=== PATIENT | female | born 1945 | race Caucasian/White ===

== ENCOUNTER → 2023-07-22 10:02 | Outpatient (REF) | payer MEDICARE, SELFPAY ==
[2023-07-22 12:03] LABS: % Basophils 0.3 % (0-2); % Eosinophils 1.2 % (0-6); % Immature Granulocytes 0.8 % (0-0.5); % Monocytes 6.1 % (1.7-9.3); % Neutrophils 60.6 % (42.2-75.2); Absolute Eosinophils 0.1 10^3/uL (0-0.7); Absolute Immature Granulocytes 0.1 10^3/uL (0-0.05); Absolute Lymphocytes 2.8 10^3/uL (1.2-3.4); Absolute Monocytes 0.6 10^3/uL (0.1-0.6); Absolute Neutrophils 5.6 10^3/uL (1.4-6.5); Hematocrit 43.4 % (37.0-47.0); Hemoglobin 14.2 g/dL (12.0-16.0); Mean Corp Hgb Conc. 32.7 g/dL (33.0-37.0); Mean Corpuscular Hgb 28.2 pg (27.0-31.0); Mean Corpuscular Volume 86.3 fL (81.0-99.0); Mean Platelet Volume 10.7 fL (7.4-10.4); Nucleated Red Blood Cells % 0 %; Platelet Count 302 10^3/uL (130-400); Red Blood Cell Count 5.03 10^6/uL (4.20-5.40); Red Cell Dist. Width 13.4 % (11.5-14.5); White Blood Cell Count 9.2 10^3/uL (4.8-10.8)
[2023-07-22 12:17] LABS: Blood Urea Nitrogen 30 mg/dl (7-17); Carbon Dioxide 27 mmol/L (22-30); Chloride 103 mmol/L (98-107); Glucose 117 mg/dl (70-99); Potassium 4.5 mmol/L (3.5-5.1); Sodium 140 mmol/L (135-145); eGFR > 60.00
== END ==
LOC: HWLAB 10:02
PROVIDERS: ATTENDING PHYSICIAN Orthopaedic Surgery; FAMILY PHYSICIAN Internal Medicine
DX: Z01.818 Encounter for other preprocedural examination (principal)
CPT/HCPCS: 36415; 80048; 85025

== ENCOUNTER 2023-08-17 13:15 | Inpatient (IN) | payer MEDICARE, SELFPAY ==
[2023-08-17] VITALS (14 sets, daily range): BP systolic 124–176; BP diastolic 58–75; BMI 30.1
[2023-08-17 06:46] LABS: % Basophils 0.3 % (0-2); % Eosinophils 2.5 % (0-6); % Immature Granulocytes 0.7 % (0-0.5); % Lymphocytes 41.9 % (20.5-51.1); % Monocytes 7.1 % (1.7-9.3); % Neutrophils 47.5 % (42.2-75.2); Absolute Eosinophils 0.3 10^3/uL (0-0.7); Absolute Immature Granulocytes 0.1 10^3/uL (0-0.05); Absolute Lymphocytes 4.5 10^3/uL (1.2-3.4); Absolute Monocytes 0.8 10^3/uL (0.1-0.6); Absolute Neutrophils 5.1 10^3/uL (1.4-6.5); Hematocrit 35.7 % (37.0-47.0); Hemoglobin 11.9 g/dL (12.0-16.0); Mean Corp Hgb Conc. 33.3 g/dL (33.0-37.0); Mean Corpuscular Hgb 28.1 pg (27.0-31.0); Mean Corpuscular Volume 84.2 fL (81.0-99.0); Mean Platelet Volume 9.8 fL (7.4-10.4); Nucleated Red Blood Cells % 0 %; Platelet Count 312 10^3/uL (130-400); Red Blood Cell Count 4.24 10^6/uL (4.20-5.40); Red Cell Dist. Width 13.9 % (11.5-14.5); White Blood Cell Count 10.7 10^3/uL (4.8-10.8)
[2023-08-17 06:56] LABS: ALT (SGPT) 26 U/L (0-35); AST (SGOT) 24 U/L (14-36); Albumin 3.3 g/dl (3.5-5.0); Alkaline Phosphatase 80 U/L (38-126); Blood Urea Nitrogen 21 mg/dl (7-17); Calcium 8.8 mg/dl (8.4-10.2); Carbon Dioxide 29 mmol/L (22-30); Chloride 104 mmol/L (98-107); Estimated Creatinine Clearance 79 ml/min; Glucose 114 mg/dl (70-99); Sodium 135 mmol/L (135-145); Total Bilirubin 0.7 mg/dl (0.2-1.3); Total Protein 5.7 g/dl (6.3-8.2); eGFR > 60.00
[2023-08-17 07:08] LABS: Troponin I < 0.012 ng/ml
--- NOTE | 2023-08-17 09:03 | ED.GENMED ---
History of Present Illness
General
Chief Complaint: Chest Pain
Source: patient
Exam Limitations: none
Time Seen by Provider: 08/17/23 06:35
Nursing documentation reviewed up to this point in time: agreed with
Travel History
Have you had any contact with someone who has COVID-19?: No
Do you have any symptoms of coronavirus? Fever > 100 degrees, chills, cough, shortness of breath, sore throat, loss of taste or smell, muscle aches, or headache?: No
History of Present Illness
History of Present Illness:
Patient status post left hip replacement 1 week ago, currently on Eliquis, presents to ED secondary to increased bilateral swelling over the past couple days, along with chest pain upon waking up this morning. Chest pain described as 'squeezing',
across her chest, without any alleviating or exacerbating this. Denies shortness of breath. Denies nausea or vomiting. Denies diaphoresis. Denies dizziness. Chest pain lasted approximately half hour, and started to improve gradually. Patient
states that by the time paramedics arrived at home, her chest pain had resolved. However, patient was given aspirin as well as 1 dose of nitroglycerin en route to the hospital. At the time of evaluation ED, patient is without chest pain. Of note,
patient states that her chest pain is similar to 2013, when she experienced pulmonary embolism, after knee surgery.
Past History
Past History
ED Past Medical History: Hypercholesterolemia and Other (Osteoporosis)
ED Past Surgical History: Gynecological, Orthopedic (Knee surgery) and Other (D.)
Social History
Tobacco: Non-smoker
Drug: None
Personal:
Living: alone
Review of Systems
Review of Systems
Allergies reviewed?: Yes
All Other Systems: ROS reviewed and negative except as documented in HPI and ROS
Constitutional: Reports no symptoms
EENT: Reports no symptoms
Respiratory: Reports no symptoms
Cardiac: Reports chest pain
ABD/GI: Reports no symptoms
Musculoskeletal: Reports edema
Skin: Reports no symptoms
Neurological: Reports no symptoms
Phy Exam
Physical Exam
Physical Exam:
Physical Exam
General: no apparent distress, not acutely ill. afebrile
Head: nc/at. eomi
Neck: supple. no meningeal signs.
Heart: s1/s2 regular rate and rhythm, no murmur. equal radial pulses.
Lungs: no acute respiratory distress. clear bilaterally. chest wall nontender to palpation.
Abdomen: normal bowel sounds. not tender.
Neuro: alert and oriented. no focal neurological deficits
Skin: no rash
Psychiatric: well kept. interactive and cooperative
Extremities: LE b/l edema, nonpitting. no calf tenderness.
Scores
Heart Score for Chest Pain Patients
STEMI patient?: Not applicable
Course
Orders/Labs/Results
Orders:
Orders
08/17/23 06:25
Electrocardiogram (*1) Urgent
Reason for Study: Chest Pain
Cardiac Monitoring- Treatment ONCE
EKG- Treatment ONCE
IV Insert/Care/Rem.- Treatment PRN
O2 Therapy [RESP] Urgent
Titrate/Wean O2 to maintain O2 sat greater than (%): 90
Special Instructions: Maintain sats >/=90%
Pulse Ox/spot Check [RESP] Urgent
Quantity: 1
Special Instructions: ON ROOM AIR
08/17/23 06:33
Complete Blood Count/With Diff Urgent
Comprehensive Metabolic Panel Urgent
Troponin I Urgent
08/17/23 06:46
US Legs, Bilateral [US Periph Venous LOWER Ext Solitario] Urgent
Comment:
Reason For Exam: leg swelling
08/17/23 08:06
Electrocardiogram (*1) Urgent
Reason for Study: Chest Pain
EKG- Treatment ONCE
08/17/23 08:16
CT Chest Pe Study Urgent
Comment:
Reason For Exam: chest pain w hx PE
08/17/23 11:50
Heparin 6,300 units IV NOW STA
08/17/23 11:59
PTT Urgent
Comment: Obtain baseline before beginning heparin infusion if not already collected
08/17/23 12:00
Heparin 81034 Units/250 ml 25,000 units in 250 ml IV PER PROTOCOL
Weight to be used for heparin protocol in kilograms (kg):: 79.3
Protocol:: DVT/PE
PTT Goal Range to be used:: PTT 73 to 111 seconds
Order type:: Initial
INITIAL Infusion Dose (UNITS/KG/hr) & then follow protocol:: 18 units/kg/hr
Infusion Dose in UNITS/hr & then follow protocol (UNITS/hr):: 1,400
INFUSION RATE in mL/hr & then follow protocol (mL/hr):: 14
For DVT/PE algorithm, re-bolus for low PTT?: Yes
PTT less than or equal to 64 seconds:: Re-bolus 80 units/kg (max 10,000units). Increase by 300 units/hr
(+ 3mL/hr)
PTT 64.1 to 72.9 seconds:: Re-bolus 40 units/kg (max 5,000 units). Increase by 200 units/hr
(+ 2mL/hr)
PTT 73 to 111 seconds:: Target Range. No change in rate.
PTT 111.1 to 130.9 seconds:: Decrease rate by 200 units/hr (- 2 mL/hr)
PTT 131 to 199.9 seconds:: HOLD for 1 hr. Then decrease by 200 units/hr (- 2mL/hr)
PTT greater than or equal to 200 seconds:: HOLD for 2 hrs & Notify Provider. Then decrease by 300 units/hr
(- 3mL/hr)
Lab follow-up:: Each change, PTT q6h until 2 consecutive are therapeutic. Then
PTT daily.
08/17/23 12:31
Heparin 6,344 units IV PRN PRN
08/17/23 12:32
Heparin 3,172 units IV PRN PRN
08/17/23 12:33
Heparin 6,300 units IV PRN PRN
08/17/23 12:34
Heparin 3,200 units IV PRN PRN
08/17/23 12:54
Code Status As Directed
Resuscitation Status: Full Code
Pt Eval And Treat Routine
Activity Level: With Assistance
08/17/23 12:55
Admit Patient As Directed
Co-Sign Provider:
Level of Care: Inpatient admission
Assign to:: Medical/Surgical
Physician / Group: Hospitalist
Diagnosis: Acute pulmonary embolism
Reason for Hospitalization: pulmonary embolism requiring parenteral anticoagulation
Expected length of stay greater than two midnights?: Yes
ELOS- Estimated Length of Stay in days: 2
I certify the patient meets the requirements for IP care: Yes
Heparin Protocol- PTT Orders As Directed
PTT per Heparin protocol: -Obtain CBC and baseline PTT - if not already collected.
-Obtain PTT 6 hours from start of infusion. Then, every 6 hours until 2 consecutive
PTT's are therapeutic. Then, PTT Daily.
-With each rate change, obtain PTT every 6 hours until 2 consecutive PTT's are
therapeutic. Then, PTT Daily.
Activity As Directed
Activity Level: With Assistance
Bladder Scan As Directed
Follow Bladder Retention/Intermittent Cath Algorithm?: Yes
Frequency: Per Retention Algorithm
Comment: as per intermittent urinary catheter algorithm
Bladder Scan As Directed
Follow Bladder Retention/Intermittent Cath Algorithm?: Yes
PRN if no void in __ hours: 6
Frequency: Per Retention Algorithm
If Bladder Scan Result >: 400
then:: Straight cath
Intake/ Output As Directed
Frequency: Per unit guidelines
Notify MD As Directed
Notify physician if: PTT is greater than or equal to 200.
Straight Cath As Directed
Frequency: Per Retention Algorithm
Additional Instructions: as per intermittent urinary catheter algorithm
Straight Cath As Directed
Frequency: Per Retention Algorithm
Additional Instructions: straight cath as needed per acute urinary retention algorithm for 24 hrs
Additional Instructions: for bladder scan greater than 400 mL
Vital Signs As Directed
Frequency: Per unit guidelines
08/17/23 12:56
O2 Therapy [RESP] Routine
Titrate/Wean O2 to maintain O2 sat greater than (%): 90
08/17/23 13:00
Acetaminophen [Tylenol] 650 mg PO Q4HPRN PRN
Oxycodone [Roxicodone] 5 mg PO Q6HPRN PRN
08/17/23 13:03
Admit/Transfer Patient As Directed
Co-Sign Provider:
Level of Care: Inpatient admission
Assign to:: Telemetry
Physician / Group: hospitalist
Diagnosis: acute pulmonary embolism
Reason for Telemetry: Chest Pain syndromes
Date to Stop Telemetry: 08/19/23
Time to Stop Telemetry: 11:00
Reason for Hospitalization: pulmonary embolism
Expected length of stay greater than two midnights?: Yes
ELOS- Estimated Length of Stay in days: 2
I certify the patient meets the requirements for IP care: Yes
08/17/23 Dinner
Regular
At Your Request: Limited Participation
08/17/23 16:14
HEMATOLOGY CONSULT Routine
Consulting Provider: Vaishali Mendez
Was physician already notified: Yes
Reason for consult: acute PE on apixaban
08/17/23 18:00
Atorvastatin [Lipitor] 20 mg PO QPM
Sertraline HCl [Zoloft] 50 mg PO QPM
08/18/23 06:33
Type+Screen IN AM
Complete Blood Count/No Diff IN AM
Prothrombin Time IN AM
08/18/23 08:00
Cholecalciferol (Vitamin D3) [VITAMIN D3 (cholecalciferol)] 25 mcg PO DAILY
08/19/23 06:00
Complete Blood Count/No Diff Q2D
Comment: notify provider: Platelet count < 130,000 or decrease by 50% from baseline
08/21/23 06:00
Complete Blood Count/No Diff Q2D
Comment: notify provider: Platelet count < 130,000 or decrease by 50% from baseline
08/23/23 06:00
Complete Blood Count/No Diff Q2D
Comment: notify provider: Platelet count < 130,000 or decrease by 50% from baseline
08/25/23 06:00
Complete Blood Count/No Diff Q2D
Comment: notify provider: Platelet count < 130,000 or decrease by 50% from baseline
08/27/23 06:00
Complete Blood Count/No Diff Q2D
Comment: notify provider: Platelet count < 130,000 or decrease by 50% from baseline
08/29/23 06:00
Complete Blood Count/No Diff Q2D
Comment: notify provider: Platelet count < 130,000 or decrease by 50% from baseline
08/31/23 06:00
Complete Blood Count/No Diff Q2D
Comment: notify provider: Platelet count < 130,000 or decrease by 50% from baseline
09/02/23 06:00
Complete Blood Count/No Diff Q2D
Comment: notify provider: Platelet count < 130,000 or decrease by 50% from baseline
Abnormal Lab Results
08/17/23
06:33
Hgb 11.9 L g/dL
(12.0-16.0)
Hct 35.7 L %
(37.0-47.0)
Abs Immat Gran (auto) 0.1 H 10^3/uL
(0-0.05)
Absolute Lymphs (auto) 4.5 H 10^3/uL
(1.2-3.4)
Absolute Monos (auto) 0.8 H 10^3/uL
(0.1-0.6)
Immature Gran % 0.7 H %
(0-0.5)
BUN 21 H mg/dl
(7-17)
Glucose 114 H mg/dl
(70-99)
Total Protein 5.7 L g/dl
(6.3-8.2)
Albumin 3.3 L g/dl
(3.5-5.0)
08/17/23 06:33
08/17/23 06:33
Vital Signs
Initial and Last Documented VS:
Initial Vital Signs
Temp Pulse Resp BP Pulse Ox
97.8 F 61 22 153/58 97
08/17/23 06:26 08/17/23 06:26 08/17/23 06:26 08/17/23 06:26 08/17/23 06:26
Last Documented Vital Signs
Temp Pulse Resp BP Pulse Ox
97.7 F 68 18 113/64 100
08/18/23 07:15 08/18/23 07:15 08/18/23 07:15 08/18/23 07:15 08/18/23 07:15
MDM/Problems Addressed
MDM/Problems Addressed:
CTA chest report reviewed and discussed with Dr. Valdez, pulmonary. Recommend starting patient on heparin protocol, along with possible hematology consult as inpatient, for further evaluation/treatment. Patient otherwise remains hemodynamically
stable during observation ED, not requiring any supplemental oxygen. No evidence of right heart strain noted on CT scan.
*EKG
Interpreted by ED Provider?: Yes
Heart Rate: 58
Rate: bradycardiac
Rhythm: sinus
[place]: normal axis
Interval: normal interval
QRS Pattern: normal QRS
Ischemia: T-wave inversion
*Critical Care Note
Total Time (30-74mins, 75-104mins- exclusive of procedures): Not Applicable
ED Attending Note
-
Portions of this chart may have been created with voice recognition software.� Occasional wrong word or��sound alike� substitutions may have occurred due to the inherent limitations of voice recognition software.
Discharge Plan
Departure
Patient Disposition: Admit
Date of Disposition: 08/17/23
Time of Disposition: 11:49
Admit to: Telemetry
Presentation/result/management discussed w/ accepting MD/DO: Hospitalist
Discharge Problem:
Pulmonary embolism
Interventions
Interventions:
*Risk Screen - Suicide Last Done: 08/17/23 06:26
*General Assessment Last Done: 08/17/23 06:26
*Neglect/Abuse Screening Last Done: 08/17/23 06:26
ED- Fall Risk Assessment Last Done: 08/17/23 16:08
*ED COVID-19 Vaccine History Last Done: 08/17/23 06:26
*Nursing Disposition Last Done: 08/17/23 16:08
ED- Cardiac Assessment Last Done: 08/17/23 06:39
Discharge Date and Time
Discharge Date/Time: 08/17/23 16:09
--- NOTE | 2023-08-17 11:17 | W.PN.UPDATE ---
Update Note
Progress Note Update
Received call from ED physician, Dr. Mishra. Patient with recent hip surgery, initially started on prophylactic dose Eliquis 2.5 mg BID, and then started on 5mg BID yesterday. Now presenting with chest pain. And lower extremity swelling. Lower
extremity duplex negative for DVT. CTA chest shows right lower lobe single segmental PE without cor pulmonale. She remains on room air, saturating 98% as per ER documentation. Troponin negative and no evidence of RV strain radiographically or
chemically. I was reached out for recommendations regarding anticoagulation.
Recs:
- Systemic anticoagulation with heparin drip as there is a chance she may have failed Eliquis considering she was on it after her recent hip surgery
- Consider hematology consultation to help discuss which is the best form of anticoagulation for this patient upon discharge
- Hypercoagulable workup also was needed however this is usually done as an outpatient
- No need for CDT or thrombectomy at this time
- Check 2D-echo
- Maintain SpO2 >94%
- MAP>65
- Admit to telemetry under hospitalist.
If official pulmonary consult is needed then please reach out to on-call pulmonary physician.
[2023-08-17 12:31] LABS: APTT 24.6 Sec (23.4-35.0)
[2023-08-17] MEDS: HEPARIN 6300 UNITS IV (12:35)
--- NOTE | 2023-08-17 12:39 | HPS.HSE ---
Addendum entered and electronically signed by Devyn Yarbrough MD 08/17/23 17:48:
Patient developed a rash (generalized erythematous maculopapular rash distributed to the bilateral thighs, right arm and chest/trunks) after starting on heparin. Complained of itching. Hemodynamically stable. History of hives, rash and severe
reactions to multiple agents including antibiotics so suspect the rash is from heparin. No other medications given.
Discussed with hematology. Will D/C heparin. Allergy treatment with benadryl and prednisone.
start on fondaparinux sq 1 hour after d/c heparin
Addendum entered and electronically signed by Devyn Yarbrough MD 08/17/23 13:17:
Admitting to telemetry.
Original Note:
Family Physician
-
Family Physician: Kaylynn Oconnell
Chief Complaint
-
Chest pain
History of Present Illness
This is a 78-year-old [place] female with past medical history significant for hyperlipidemia and stage osteoarthritis status post bilateral knee replacement recent left total hip arthroplasty who presents to the emergency department after waking up
with acute onset chest pain today.
Patient also has a history of provoked DVT 9 years ago in the setting of knee replacement surgery. She had a bilateral lower extremity DVT as well as a PE at that time and was treated with Coumadin for 1 year. No further symptoms since then.
She was thought to be high risk and 6 days ago did for the left total hip arthroplasty and was started on prophylactic apixaban 2.5 mg twice daily. This was titrated to 5 mg twice daily 2 days ago given her risk factors. Family reported that the
patient bilateral leg swelling but mostly on the left yesterday. She did not arouse this morning with the chest pain. She denies shortness of breath, lightheadedness or dizziness, palpitations. She denies any recent history of melena or
hematochezia. She denies a history of GERD. She has no recent falls.
In ED patient was afebrile, hemodynamically stable in no acute distress. ECG showed a normal sinus rhythm with a rate of 60 and otherwise normal. Chemistries and CBC are all within normal limits. Chest CT shows a small right lower lobe thrombus.
Bilateral DVT studies were negative. Giving that she was already on anticoagulation and the case was discussed with pulmonary will recommend starting heparin and consulting hematology.
Medical History
Past Medical History
Past Medical History: Reports Hypercholesterolemia
Additional Past Medical History:
Venous Thromboembolism
Past Surgical History: Reports Orthopedic
Additional Past Surgical History:
Bilateral Knee arthroplasty
POD # 6 s/p L SHERRY
Social History
Tobacco: Non-smoker
Alcohol: None
Drug: None
Personal: Single
Living: Alone
Employment: Retired
Family History
Family History: Not pertinent
Allergies / Home Medications
Allergies reflects when Allergies were last updated in [employer].
Home Medications with original date entered in [employer]
Allergy/Medication List:
Allergies
Allergy/AdvReac Type Severity Reaction Status Date / Time
azithromycin [From Zithromax] Allergy severe Verified 08/17/23 06:34
body
rash/hives
bacitracin Allergy Hives Verified 08/17/23 06:34
cefuroxime Allergy Rash Verified 08/17/23 06:34
ciprofloxacin [From Cipro] Allergy severe Verified 08/17/23 06:34
body rash,
hives
ciprofloxacin HCl Allergy severe Verified 08/17/23 06:34
[From Cipro] body rash,
hives
lidocaine Allergy pt is Verified 08/17/23 06:34
unsure
about this
allergy
neomycin [Neomycin] Allergy Hives Verified 08/17/23 06:34
nitrofurantoin Allergy severe Verified 08/17/23 06:34
body rash
Penicillins Allergy severe Verified 08/17/23 06:34
body rash,
hives
polymyxin B Allergy Hives Verified 08/17/23 06:34
pramoxine [Pramoxine] Allergy Hives Verified 08/17/23 06:34
Sulfa (Sulfonamide Allergy severe Verified 08/17/23 06:34
Antibiotics) body rash
polymyxin b sulfate Allergy Hives Uncoded 08/17/23 06:34
Home Medications
atorvastatin 20 mg tablet 20 mg PO QPM 01/22/22
sertraline 50 mg tablet 50 mg PO QPM 01/22/22
acetaminophen 500 mg tablet 1,000 mg PO BIDPRN PRN pain 08/17/23
apixaban 5 mg tablet (Eliquis) 5 mg PO BID 08/17/23
calcium carb 1,200 mg-vit D3 1,000 unit-minerals chewable tablet 1 tab PO DAILY 08/17/23
cholecalciferol (vitamin D3) 25 mcg (1,000 unit) tablet (Vitamin D3) 25 mcg PO DAILY 08/17/23
zolpidem 10 mg tablet 5 mg PO HSPRN PRN insomnia 08/17/23
Review of Systems
-
History Source: Patient
Constitutional: Reports No Symptoms
EENT: Reports No Symptoms
Respiratory: Reports No Symptoms
Cardiac: Reports Chest Pain
Abdomen/GI: Reports No Symptoms
: Reports No Symptoms
Musculoskeletal: Reports Joint Pain
Skin: Reports No Symptoms
Neurological: Reports No Symptoms
Hematologic/Lymphatic: Reports No Symptoms
Psych: Reports No Symptoms
Physical Exam
Vital Signs
Vital Signs
Temp Pulse Resp BP Pulse Ox
97.8 F 67 22 124/72 98
08/17/23 06:26 08/17/23 06:29 08/17/23 06:26 08/17/23 08:07 08/17/23 08:15
Physical Exam
General: Well Developed, Well Nourished and No Apparent Distress
HEENT: NormoCephalic, Anicteric, Moist mucous membranes, Atraumatic and PERRLA
Respiratory: Clear
Cardiac: S1/S2 and Regular Rhythm
Breast: Deferred by me
GI: Soft, Non Tender, Non Distended and Normal Bowel Sounds
Rectal: Deferred by Provider
Genito-urinary: Deferred by me
Musculoskeletal: No Clubbing, No Cyanosis and No Edema
Skin: Warm
Neuro: Awake and AO x 3
Hematologic/Lymphatic: No Lymphadenopathy
Psych: Calm
Laboratory Results
-
08/17/23 06:33
08/17/23 06:33
Laboratory Results
Total Bilirubin 0.7 mg/dl (0.2-1.3) 08/17/23 06:33
AST 24 U/L (14-36) 08/17/23 06:33
ALT 26 U/L (0-35) 08/17/23 06:33
Alkaline Phosphatase 80 U/L (38-126) 08/17/23 06:33
Troponin I < 0.012 ng/ml 08/17/23 06:33
Data Reviewed
-
Diagnostic Radiology: Report Reviewed by me
CT Scan: Report Reviewed by me
Ultrasound: Report Reviewed by me
Medical Tests (Nuc Med, Echo, EKG etc): Image Personally Visualized and interpreted
Lab Data: Labs Reviewed by me
Old Records: Reviewed
Impression/Plan
-
IMPRESSION:
Patient is postop day #6 status post left total hip arthroplasty presenting with chest pain and found to have a small right lower lobe thromboembolism. She is hemodynamically stable, normal oxygen saturation on room air and ECG shows no signs of
strain. CT PE shows the small thromboembolism without any cardiac strain. This will be the second unprovoked venous thromboembolism event in this patient immediately status post surgery in the last 10 years.
PLAN:
1. PE - Provoked PE given s/p surgery but patient highly likely to have underlying risk factor given this is a second provoked episode immediately after surgery despite anticoagulation (prophylaxis w/ apixaban 5mg bid). Pulmonary Embolism Severity
Index (PESI) = 78 points, Class II, Low Risk: 1.7-3.5% 30-day mortality in this group. No known bleeding risks except recent surgery but site is C/D/I.
- admit to general medical floor, no need for step down or telemetry
- d/w pulmonary and starting heparin gtt, w/ monitoring of cbc, and coags.
- possible failure of apixaban but given not initiated at 10mg bid dose this is not absolute, will consult hematology.
2. S/P L SHERRY - stable.
- continue management with analgesics as per home
- PT eval
- out of bed with assistance
3. HLD - Stable
- continue atorvastatin
Code status - Full
[2023-08-17] MEDS: HEPARIN 25000 UNITS/250 ML IV (13:20)
--- NOTE | 2023-08-17 14:52 | CM ---
Patient admitted from home with Acute PE. She had L THR by Dr. Horta on 08/12/23. She was a same day patient at [facility] surgical center. SHe had [facility] home care for 3 visits then had her out patient PT initial eval recently at [facility].
She [facility] alone [facility] with elevator access.
She has rolling walker, c.ane, toilet rails, shower rail, shower seat, hip kit.
[facility]
IF she needs [facility] she would use [facility] again.
Plan:home and resume outpatient PT.
--- NOTE | 2023-08-17 16:45 | PTCARENOTE ---
Arrived to unit from ED with heparin gtt running @ 14ml/hr. No complaints at this time. Oriented to room. Call mir within reach.
[2023-08-17] MEDS: LIPITOR 20 MG PO (17:07)
[2023-08-17] MEDS: ZOLOFT 50 MG PO (17:07)
[2023-08-17] MEDS: BENADRYL 25 MG IV (17:49)
[2023-08-17] MEDS: DELTASONE 40 MG PO (17:49)
--- NOTE | 2023-08-17 17:54 | PTCARENOTE ---
Upon assessment of skin, red raised itchy rash noted on R forearm, thighs, and chest. Dr. Yarbrough with patient at bedside to evaluate. Order for heparin gtt to stop due to concern of allergic reaction. IV Benadryl and Po prednisone administered.
Plan of care ongoing.
[2023-08-17 18:16] LABS: APTT 166.4 Sec (23.4-35.0)
[2023-08-17] MEDS: ROXICODONE 5 MG PO (18:37)
[2023-08-17] MEDS: ARIXTRA 5 MG SC (19:01)
[2023-08-17] MEDS: ARIXTRA 2.5 MG SC (19:01)
[2023-08-17] MEDS: TYLENOL 650 MG PO (23:44)
[2023-08-17] MEDS: AMBIEN 5 MG PO (23:47)
[2023-08-18 06:54] LABS: Hematocrit 37.7 % (37.0-47.0); Hemoglobin 12.5 g/dL (12.0-16.0); Mean Corp Hgb Conc. 33.2 g/dL (33.0-37.0); Mean Corpuscular Hgb 28.2 pg (27.0-31.0); Mean Corpuscular Volume 84.9 fL (81.0-99.0); Mean Platelet Volume 9.8 fL (7.4-10.4); Platelet Count 330 10^3/uL (130-400); Red Blood Cell Count 4.44 10^6/uL (4.20-5.40); Red Cell Dist. Width 13.7 % (11.5-14.5); White Blood Cell Count 9.5 10^3/uL (4.8-10.8)
[2023-08-18 07:03] LABS: INR 1.08; PT 13.8 Sec (11.4-14.6)
[2023-08-18 07:15] VITALS: BP 113/64
--- NOTE | 2023-08-18 08:19 | W.PN.HOSP.TC ---
Today's Communication/Plan
-
Continue Arixtra
Hematology consult pending
For echo tomorrow
Assessment / Plan
Assessment / Plan
78-year-old female postop day #6 status post left total hip arthroplasty presenting with chest pain and found to have a small right lower lobe thromboembolism.� She is hemodynamically stable, normal oxygen saturation on room air and ECG shows no
signs of strain.� CT PE shows the small thromboembolism without any cardiac strain.� This will be the second unprovoked venous thromboembolism event in this patient immediately status post surgery in the last 10 years.�
PLAN:
1. PE - Provoked PE given s/p surgery but patient highly likely to have underlying risk factor given this is a second provoked episode immediately after surgery despite anticoagulation (prophylaxis w/ apixaban 5mg bid).� Pulmonary Embolism Severity
Index (PESI) = 78 points, Class II, Low Risk: 1.7-3.5% 30-day mortality in this group.� No known bleeding risks except recent surgery but site is C/D/I.
-Patient had an adverse reaction to heparin drip, which has since been discontinue
-Continue Arixtra as per hematology recommendations, official consult is pending
-Check echocardiogram
2. S/P L SHERRY - stable.
- continue management with analgesics as per home
- PT eval
- follow-up with orthopedic surgery in the office
3. HLD - Stable
- continue atorvastatin
4. Adverse reaction to heparin
-Status post Benadryl and prednisone
-Will order Vistaril for itching, triamcinolone for the skin
5. Obesity due to excess calories
-Affects all aspects of care
DVT prophylaxis�Arixtra
Full code
Updated daughter at bedside 09/13
Physical Exam
General: Obese, no acute distress
HEENT: Normocephalic, Atraumatic, EOMI, MMM
Respiratory: Clear to Auscultation bilaterally
Cardiac: Normal S1/S2, Regular Rate and Rhythm
GI: Soft, Nontender, Nondistended, Normal Bowel Sounds
Extremities: No Clubbing, Cyanosis
Musculoskeletal: Left hip incision healing
Derm: Diffuse erythema of the arms and legs
Anticipated Discharge: Within 24 hours
Subjective/Interval History
-
Date of Service: August 18, 2023
Patient complains of itching, from receiving the IV heparin yesterday. Denies chest pain, denies shortness of breath.
Objective Data
-
Labs:
Laboratory Results
08/18/23
06:33
WBC 9.5
Hgb 12.5
Hct 37.7
Plt Count 330
PT 13.8
INR 1.08
Vital Signs:
Vital Signs
Temp Pulse Resp BP Pulse Ox
97.7 F 68 18 113/64 100
08/18/23 07:15 08/18/23 07:15 08/18/23 07:15 08/18/23 07:15 08/18/23 07:15
[2023-08-18] MEDS: VITAMIN D3 (cholecalciferol) 25 MCG PO (08:48)
[2023-08-18] MEDS: BENADRYL 25 MG IV (08:49)
[2023-08-18] MEDS: TYLENOL 650 MG PO (08:57)
--- NOTE | 2023-08-18 13:28 | CON.ONC ---
Impression
Impression
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
Small PE provoked by THR but occurring on Eliquis
Plan
Plan
Tolerating Arixtra. Transition to warfarin which she has tolerated in the past. She is and lives alone, would need to be taught to self-inject.
Follow up with us 1-2 weeks as outpt. We wll manage warfarin initially.
Anticipate finite course of anticoagulation due to provoked event, followed by baby aspirin prophylaxis which she was on previously.
Thank you for consult, will follow along with you.
Patient History
History of Present Illness
78-year-old woman with history of DVT in 2015 following bilateral total knee replacement. She was on DVT prophylaxis with aspirin for that procedure. She was treated with 1 year of Coumadin which she tolerated well. She did not undergo a
hypercoagulable workup or see a field services manager. She has had some episodes of chest pain since then with negative cardiac workup. She underwent left total hip replacement on August 12, started Eliquis 2.5 twice daily on the , transitioned to
Eliquis 5 twice daily on July. She developed recurrent PE symptoms and was found to have a small right lower lobe pulmonary embolism on 08/17/2023. She was started on heparin drip but had a rash. She is now on Arixtra with good tolerance.
We are consulted regarding management of anticoagulation going forward. Lower extremity Dopplers were negative. She denies chest pain or shortness of breath currently.
Past-Medical/Surgical History
Past Medical History
Hypercholesterolemia
Past Surgical History
Bilateral Knee arthroplasty complicate by post-op DVT/PE
Hysterectomy
POD # 6 s/p L SHERRY
Social History
Tobacco: Non-smoker
Alcohol: None
Drug: None
Personal: Single
Living: Alone
Employment: Retired
Family History
Mat GM of blood clot
Patient Medication
Medication Instructions Recorded Confirmed Last Taken Type
atorvastatin 20 mg tablet 20 mg PO QPM High Cholesterol 01/22/22 08/17/23 08/16/23 History
sertraline 50 mg tablet 50 mg PO QPM Mental Health/Anxiety 01/22/22 08/17/23 08/16/23 History
apixaban 5 mg tablet (Eliquis) 5 mg PO BID Blood Clot 08/17/23 08/17/23 08/16/23 History
Prevention/Tx
aspirin 81 mg tablet,delayed 162 mg PO DAILY PRN chest pains 08/17/23 08/17/23 08/16/23 History
release
cholecalciferol (vitamin D3) 25 25 mcg PO DAILY Supplement 08/17/23 08/17/23 08/16/23 History
mcg (1,000 unit) tablet (Vitamin
D3)
zolpidem 10 mg tablet 5 mg PO HSPRN PRN insomnia 08/17/23 08/17/23 Unknown History
Active Medications
Generic Name Dose Route Start Last Admin
Trade Name Freq PRN Reason Stop Dose Admin
Acetaminophen 650 mg 08/17/23 13:00 08/18/23 08:57
Acetaminophen 325 Mg Tablet PO 09/14/23 12:59 650 mg
Q4HPRN PRN Administration
mild pain/temp > 100.4 F
Atorvastatin Calcium 20 mg 08/17/23 18:00 08/17/23 17:07
Atorvastatin (Lipitor) 20 Mg Tablet PO 09/14/23 17:59 20 mg
QPM JANIYA Administration
Cholecalciferol 25 mcg 08/18/23 08:00 08/18/23 08:48
Cholecalciferol (Vitamin D3) 25 Mcg Tablet (1,000 Units) PO 09/15/23 07:59 25 mcg
DAILY JANIYA Administration
Fondaparinux 5 mg 08/17/23 19:00 08/17/23 19:01
Fondaparinux 5 Mg/0.4 Ml Syringe SC 09/14/23 18:59 5 mg
QPM JANIYA Administration
Fondaparinux 2.5 mg 08/17/23 19:00 08/17/23 19:01
Fondaparinux 2.5 Mg/0.5 Ml Syringe SC 09/14/23 18:59 2.5 mg
QPM JANIYA Administration
Hydroxyzine HCl 25 mg 08/18/23 09:52
Hydroxyzine 25 Mg Tablet PO 09/15/23 09:51
QIDPRN PRN
itching
Oxycodone HCl 5 mg 08/17/23 13:00 08/17/23 18:37
Oxycodone 5 Mg Regular Release Tablet PO 08/31/23 12:59 5 mg
Q6HPRN PRN Administration
severe pain
Sertraline HCl 50 mg 08/17/23 18:00 08/17/23 17:07
Sertraline 50 Mg Tablet PO 09/14/23 17:59 50 mg
QPM JANIYA Administration
Sodium Chloride 0 flush 08/17/23 14:00
Sodium Chloride 0.9% (Flush) Syringe IV 09/14/23 13:59
PER PROTOCOL JANIYA
Zolpidem Tartrate 5 mg 08/17/23 23:40 08/17/23 23:47
Zolpidem Tartrate 5 Mg Tablet PO 09/14/23 23:39 5 mg
HSPRN PRN Administration
insomnia
Review of Systems
-
History Source: Patient
All Other Systems: Reviewed and Negative
Physical Exam
-
General: Well Developed and Well Nourished
HEENT: Moist Mucous Membranes; Negative Jaundice
Cardiology: Normal Sinus Rhythm, S1 and S2
Pulmonary: Clear
GI: Soft and Normal Bowel Sounds
Extremities: Pulses Present and No C/C/E
Neurology: Non Focal
Skin: Warm and Dry
Hematologic / Lymphatic: Negative Lymphadenopathy
Psych: Calm and Intact Judgement/Insight
Labs
Lab Results
WBC 9.5 10^3/uL (4.8-10.8) 08/18/23 06:33
RBC 4.44 10^6/uL (4.20-5.40) 08/18/23 06:33
Hgb 12.5 g/dL (12.0-16.0) 08/18/23 06:33
Hct 37.7 % (37.0-47.0) 08/18/23 06:
MCV 84.9 fL (81.0-99.0) 08/18/23 06:33
MCH 28.2 pg (27.0-31.0) 08/18/23 06:
MCHC 33.2 g/dL (33.0-37.0) 08/18/23 06:
RDW 13.7 % (11.5-14.5) 08/18/23 06:33
Plt Count 330 10^3/uL (130-400) 08/18/23 06:33
MPV 9.8 fL (7.4-10.4) 08/18/23 06:33
Abs Immat Gran (auto) 0.1 10^3/uL (0-0.05) H 08/17/23 06:33
Absolute Neuts (auto) 5.1 10^3/uL (1.4-6.5) 08/17/23 06:33
Absolute Lymphs (auto) 4.5 10^3/uL (1.2-3.4) H 08/17/23 06:33
Absolute Monos (auto) 0.8 10^3/uL (0.1-0.6) H 08/17/23 06:33
Absolute Eos (auto) 0.3 10^3/uL (0-0.7) 08/17/23 06:33
Absolute Basos (auto) 0.0 10^3/uL (0-0.2) 08/17/23 06:33
Immature Gran % 0.7 % (0-0.5) H 08/17/23 06:33
Neutrophils % 47.5 % (42.2-75.2) 08/17/23 06:33
Lymphocytes % 41.9 % (20.5-51.1) 08/17/23 06:33
Monocytes % 7.1 % (1.7-9.3) 08/17/23 06:33
Eosinophils % 2.5 % (0-6) 08/17/23 06:33
Basophils % 0.3 % (0-2) 08/17/23 06:33
Creatinine 0.6 mg/dL (0.6-1.0) 08/17/23 06:33
Vital Signs
Vital Signs
Temp Pulse Resp BP Pulse Ox
97.7 F 68 18 113/64 100
08/18/23 07:15 08/18/23 07:15 08/18/23 07:15 08/18/23 07:15 08/18/23 07:15
[2023-08-18] MEDS: ATARAX 25 MG PO ×2 (15:36→21:44)
[2023-08-18] MEDS: TYLENOL 1000 MG PO ×2 (15:36→21:44)
[2023-08-18] MEDS: MIRALAX 17 GRAMS PO (15:42)
[2023-08-18 15:58] VITALS: BP 123/65
[2023-08-18 15:59] LABS: INR 1.09; PT 13.9 Sec (11.4-14.6)
[2023-08-18] MEDS: ARISTOCORT/TRIAMCINOLONE 0.1% CREAM 1 APPLIC TOPICAL ×2 (16:52→21:45)
[2023-08-18] MEDS: ZOLOFT 50 MG PO (17:38)
[2023-08-18] MEDS: LIPITOR 20 MG PO (17:39)
[2023-08-18] MEDS: COUMADIN 5 MG PO (17:39)
[2023-08-18] MEDS: ARIXTRA 2.5 MG SC (17:40)
[2023-08-18] MEDS: ARIXTRA 5 MG SC (17:40)
[2023-08-18 23:09] VITALS: BP 124/64
[2023-08-19] MEDS: AMBIEN 5 MG PO ×2 (00:13→21:13)
[2023-08-19 07:25] VITALS: BP 143/68
[2023-08-19 08:12] LABS: Hematocrit 37.5 % (37.0-47.0); Hemoglobin 12.4 g/dL (12.0-16.0); Mean Corp Hgb Conc. 33.1 g/dL (33.0-37.0); Mean Corpuscular Hgb 28.2 pg (27.0-31.0); Mean Corpuscular Volume 85.2 fL (81.0-99.0); Mean Platelet Volume 9.8 fL (7.4-10.4); Platelet Count 319 10^3/uL (130-400); Red Cell Dist. Width 13.8 % (11.5-14.5); White Blood Cell Count 9.3 10^3/uL (4.8-10.8)
[2023-08-19 08:22] LABS: INR 1.16; PT 14.7 Sec (11.4-14.6)
[2023-08-19 08:43] LABS: ALT (SGPT) 25 U/L (0-35); AST (SGOT) 23 U/L (14-36); Albumin 3.1 g/dl (3.5-5.0); Alkaline Phosphatase 73 U/L (38-126); Blood Urea Nitrogen 21 mg/dl (7-17); Calcium 8.8 mg/dl (8.4-10.2); Carbon Dioxide 29 mmol/L (22-30); Chloride 102 mmol/L (98-107); Estimated Creatinine Clearance 57 ml/min; Glucose 108 mg/dl (70-99); Potassium 4.3 mmol/L (3.5-5.1); Sodium 137 mmol/L (135-145); Total Bilirubin 0.7 mg/dl (0.2-1.3); Total Protein 5.1 g/dl (6.3-8.2); eGFR > 60.00
[2023-08-19] MEDS: VITAMIN D3 (cholecalciferol) 25 MCG PO (09:50)
[2023-08-19] MEDS: ARISTOCORT/TRIAMCINOLONE 0.1% CREAM 1 APPLIC TOPICAL (09:50)
[2023-08-19] MEDS: TYLENOL 1000 MG PO ×3 (09:50→21:13)
[2023-08-19] MEDS: MIRALAX 17 GRAMS PO (09:51)
--- NOTE | 2023-08-19 10:02 | W.PN.ONC ---
Today's Communication / Plan
-
Tolerating Arixtra with plans to transition to Coumadin which she has tolerated in the past
She does not wish to self inject at home and prefers Coumadin
Avoid heparin
Monitor for bleeding
Physical therapy
ECHO today
We discussed finite course of anticoagulation due to provoked event which is to be followed by baby aspirin prophylaxis
The [place] office has been notified to schedule follow up pending discharge for management of Coumadin and consideration of home INR monitor.
We will continue to follow.
Impression
Impression
Hx DVT/PE provoked b/l TKR replacement (2015)
s/p left THR by Dr. Horta on 08/12/23
Small PE s/p left THR which occurred on Eliquis (2023)
Rash secondary to heparin
Subjective/Objective
Subjective/Objective
Patient is OOB to the chair. She denies acute pain, chest pain, shortness of breath, or evidence of bleeding. she reports her legs 'feel tight'. she is concerned that she has not yet worked with PT.
Vital Signs:
Vital Signs
Temp Pulse Resp BP Pulse Ox
97.6 F 71 18 143/68 98
08/19/23 07:25 08/19/23 07:25 08/19/23 07:25 08/19/23 07:25 08/19/23 07:25
physical exam:
aaox3, pleasant/cooperative
HRR, lungs dim/clear, room air
Left hip Aquacel dressing CDI, old drainage
+1 bilateral LE edema with discoloration
Negative Abelino's sign
Lab Results:
Laboratory Data
WBC 9.3 10^3/uL (4.8-10.8) 08/19/23 07:30
Hgb 12.4 g/dL (12.0-16.0) 08/19/23 07:30
Plt Count 319 10^3/uL (130-400) 08/19/23 07:30
PT 14.7 Sec (11.4-14.6) H 08/19/23 07:30
INR 1.16 08/19/23 07:30
APTT Cancelled 08/17/23 18:00
eGFR > 60.00 08/19/23 07:30
08/17/23 PV US:No sonographic evidence for lower extremity venous thrombosis.
08/17/[address]: Small right lower lobe thromboembolus. No evidence for right heart strain.
[2023-08-19 12:33] VITALS: BP 124/79; BP 133/74; PULSE 86
[2023-08-19 15:19] VITALS: BP 128/68
--- NOTE | 2023-08-19 16:50 | W.PN.HOSP.TC ---
Today's Communication/Plan
-
Continue warfarin bridging
Subcu injection teaching -patient willing to try bridging at home
Assessment / Plan
Assessment / Plan
78-year-old female postop day #6 status post left total hip arthroplasty presenting with chest pain and found to have a small right lower lobe thromboembolism.� She is hemodynamically stable, normal oxygen saturation on room air and ECG shows no
signs of strain.� CT PE shows the small thromboembolism without any cardiac strain.� This will be the second unprovoked venous thromboembolism event in this patient immediately status post surgery in the last 10 years.�
PLAN:
1. PE - Provoked
-PE given s/p surgery but patient highly likely to have underlying risk factor given this is a second provoked episode immediately after surgery despite anticoagulation (prophylaxis w/ apixaban 5mg bid).�
-Pulmonary Embolism Severity Index (PESI) = 78 points, Class II, Low Risk: 1.7-3.5% 30-day mortality in this group.� No known bleeding risks except recent surgery but site is C/D/I.
-Patient had an adverse reaction to heparin drip, which has since been discontinue
-Continue Arixtra as per hematology recommendations, being bridged to warfarin.
-no RV strain on TTE. preserved EF
2. S/P L SHERRY - stable.
- continue management with analgesics as per home
- PT eval
- follow-up with orthopedic surgery in the office
3. HLD - Stable
- continue atorvastatin
4. Adverse reaction to heparin
-Status post Benadryl and prednisone
-Will order Vistaril for itching, triamcinolone for the skin
5. Obesity due to excess calories
-Affects all aspects of care
DVT prophylaxis�Arixtra
Full code
Anticipated Discharge: Within 24 hours
Subjective/Interval History
-
Date of Service: August 19, 2023
Complains of left calf pain
No other issues
Objective Data
-
Labs:
Laboratory Results
08/19/23
07:30
WBC 9.3
Hgb 12.4
Hct 37.5
Plt Count 319
PT 14.7 H
INR 1.16
Sodium 137
Potassium 4.3
Chloride 102
Carbon Dioxide 29
BUN 21 H
Creatinine 0.8
Glucose 108 H
Calcium 8.8
Total Bilirubin 0.7
AST 23
ALT 25
Alkaline Phosphatase 73
Vital Signs:
Vital Signs
Temp Pulse Resp BP Pulse Ox
97.8 F 85 18 128/68 96
08/19/23 15:19 08/19/23 15:19 08/19/23 15:19 08/19/23 15:19 08/19/23 15:19
I&O
08/18/23 08/19/23 08/20/23
06:59 06:59 06:59
Intake Total 900 / 900
Balance 900 / 900
Review of Systems
-
Respiratory: Reports No Symptoms
Cardiac: Reports No Symptoms
Abdomen/GI: Reports No Symptoms
Physical Exam
-
General: No Apparent Distress and Comfortable
HEENT: Negative Oxygen
Respiratory: Clear to Auscultation
Cardiac: Regular Rhythm and S1/S2; Negative Murmur or Rub
GI: Soft, Nontender and Nondistended
Musculoskeletal: No Edema
Neuro: Awake, Alert, Oriented, No Motor Deficits and Nonfocal/Grossly Intact
Psych: Calm
[2023-08-19] MEDS: ZOLOFT 50 MG PO (17:25)
[2023-08-19] MEDS: LIPITOR 20 MG PO (17:25)
[2023-08-19] MEDS: COUMADIN 5 MG PO (17:25)
[2023-08-19] MEDS: ARIXTRA 2.5 MG SC (17:25)
[2023-08-19] MEDS: ARIXTRA 5 MG SC (17:25)
--- NOTE | 2023-08-19 18:38 | W.PN.ONC2 ---
Today's Communication / Plan
-
Suspect pain in leg is post-surgical but agree with Doppler as ordered for peace of mind and because she developed PE initially despite Eliquis.
I will contact our new pt schedulers to arrange follow up.
Impression
Impression
Hx DVT/PE provoked b/l TKR replacement (2015)
s/p left THR by Dr. Horta on 08/12/23
Small PE s/p left THR which occurred on Eliquis (2023)
Rash secondary to heparin
Plan
Plan
Tolerating Arixtra. Transition to warfarin which she has tolerated in the past. She is and lives alone, would need to be taught to self-inject.
Follow up with us 1-2 weeks as outpt. We will manage warfarin initially.
Anticipate finite course of anticoagulation due to provoked event, followed by baby aspirin prophylaxis which she was on previously.
Subjective/Objective
Chief Complaint
Provoked DVT occurring on Eliquis
Subjective
Continues on Arixtra. Very concerned about new L leg/knee swelling.
Vital Signs:
Vital Signs
Temp Pulse Resp BP Pulse Ox
97.8 F 85 18 128/68 96
08/19/23 15:19 08/19/23 15:19 08/19/23 15:19 08/19/23 15:19 08/19/23 15:19
Lab Results:
Laboratory Data
WBC 9.3 10^3/uL (4.8-10.8) 08/19/23 07:30
Hgb 12.4 g/dL (12.0-16.0) 08/19/23 07:30
Plt Count 319 10^3/uL (130-400) 08/19/23 07:30
PT 14.7 Sec (11.4-14.6) H 08/19/23 07:30
INR 1.16 03/04/24 07:30
APTT Cancelled 08/17/23 18:00
eGFR > 60.00 08/19/23 07:30
Physical Exam
Awake, alert, non-toxic
[2023-08-19 23:15] VITALS: BP 126/55
[2023-08-20] MEDS: ROXICODONE 5 MG PO (04:11)
[2023-08-20 07:00] VITALS: BP 143/85
[2023-08-20 07:12] LABS: INR 1.67; PT 19.5 Sec (11.4-14.6)
[2023-08-20] MEDS: TYLENOL 1000 MG PO ×2 (08:32→17:22)
[2023-08-20] MEDS: MIRALAX 17 GRAMS PO (08:32)
[2023-08-20] MEDS: VITAMIN D3 (cholecalciferol) 25 MCG PO (08:33)
--- NOTE | 2023-08-20 08:39 | W.PN.HOSP.TC ---
Addendum entered and electronically signed by Bill Zayas MD 08/20/23 09:00:
3 pharmacy in the area called and no one has fondaparinux in stock.
Discussed with patient and we will have the last injection given here in the hospital and patient to be discharged home.
Patient INR 1.67 and should be in range by tomorrow and will not require any outpatient bridging,
Original Note:
Today's Communication/Plan
-
see note
d/c home
Assessment / Plan
Assessment / Plan
78-year-old female postop day #6 status post left total hip arthroplasty presenting with chest pain and found to have a small right lower lobe thromboembolism.� She is hemodynamically stable, normal oxygen saturation on room air and ECG shows no
signs of strain.� CT PE shows the small thromboembolism without any cardiac strain.� This will be the second unprovoked venous thromboembolism event in this patient immediately status post surgery in the last 10 years.�
PLAN:
1. PE - Provoked
-PE given s/p surgery but patient highly likely to have underlying risk factor given this is a second provoked episode immediately after surgery despite anticoagulation (prophylaxis w/ apixaban 5mg bid).�
-Pulmonary Embolism Severity Index (PESI) = 78 points, Class II, Low Risk: 1.7-3.5% 30-day mortality in this group.� No known bleeding risks except recent surgery but site is C/D/I.
-Patient had an adverse reaction to heparin drip, which has since been discontinue
-no RV strain on TTE. preserved EF
-Continue Arixtra as per hematology recommendations, being bridged to warfarin. Patient educated and wanting to do bridging at home. INR 1.67 today and patient will be provided two injection of fondaparinux. Repeat INR check on . Patient
to follow-up with hematology office. PCP informed through TT as well.
2. S/P L SHERRY - stable.
- continue management with analgesics as per home
-Dressing has been removed in hospital
- PT eval
- follow-up with orthopedic surgery in the office
3. HLD - Stable
- continue atorvastatin
4. Adverse reaction to heparin
-Status post Benadryl and prednisone
-Will order Vistaril for itching, triamcinolone for the skin
5. Obesity due to excess calories
-Affects all aspects of care
DVT prophylaxis�Arixtra
Full code
More than 30 minutes spent in discharge including
Final examination of the patient
Summarizing hospital stay
Instructions for continuing care to all relevant caregivers
Preparation of discharge records, prescriptions, and referral forms
Total time spent (in minutes): 35 mins
Anticipated Discharge: Today
Subjective/Interval History
-
Date of Service: August 20, 2023
Complaining of some left leg spasm/pain
No acute issues overnight
Objective Data
-
Labs:
Laboratory Results
08/20/23
05:47
PT 19.5 H
INR 1.67
Vital Signs:
Vital Signs
Temp Pulse Resp BP Pulse Ox
98 F 86 18 143/85 96
08/20/23 07:00 08/20/23 07:00 08/20/23 07:00 08/20/23 07:00 08/20/23 07:00
I&O
08/19/23 08/20/23 08/21/23
06:59 06:59 06:59
Intake Total 900 / 900 960 / 960
Balance 900 / 900 960 / 960
Review of Systems
-
Respiratory: Reports No Symptoms
Cardiac: Reports No Symptoms
Abdomen/GI: Reports No Symptoms
Physical Exam
-
General: No Apparent Distress and Comfortable
HEENT: Negative Oxygen
Respiratory: Clear to Auscultation
Cardiac: Regular Rhythm and S1/S2; Negative Murmur or Rub
GI: Soft, Nontender and Nondistended
Musculoskeletal: No Edema
Neuro: Awake, Alert, Oriented, No Motor Deficits and Nonfocal/Grossly Intact
Psych: Calm
[2023-08-20 15:00] VITALS: BP 141/81
--- NOTE | 2023-08-20 15:45 | CM ---
CM following re: d/c planning
Chart reviewed
Pt is medically stable for d/c
Pt will have two injections of Arixtra prior to being discharged and will be bridged to warfarin
Referral placed with [facility] and accepted as the patient has familiarity with agency
Pt will also f/u with oncology/hematology outpatient
Hospitalist also provided a script for outpatient PT
No additional d/c needs noted
PLAN; d/c home with [facility]
Fax:
[2023-08-20] MEDS: ARIXTRA 2.5 MG SC (17:21)
[2023-08-20] MEDS: ARIXTRA 5 MG SC (17:22)
[2023-08-20] MEDS: COUMADIN 5 MG PO (17:23)
[2023-08-20] MEDS: LIPITOR 20 MG PO (17:23)
[2023-08-20] MEDS: ZOLOFT 50 MG PO (17:28)
--- NOTE | 2023-08-21 08:00 | W.DCSUMMARY ---
Discharge Summary
Discharge Data
Date of Admission: 08/17/23
Date of Discharge: 08/20/23
-
Pending Results: No
Hospital Course
Discharging Physician : Dr Bill Zayas
Disposition : Home
Primary care physician : Dr Kaylynn Oconnell
Principal Discharge diagnosis :
Recurrent pulmonary embolism, provoked
Recent left hip arthroplasty
Possible allergic drug reaction to heparin
Chronic Discharge diagnosis :
Hyperlipidemia
Obesity
Depression
Hospital Course :
Patient is a 78-year-old female with above-mentioned past medical history came to ER for having new onset of chest pain. Patient has history of provoked DVT 9 years ago after having a knee replacement surgery. Patient had a left total hip
arthroplasty a week back and was felt to be a high risk for VTE and was started on eliquis 2.5mg twice daily for prophylaxis. In ER clinical workup relatively negative and there was concern of underlying PE. CT chest PE was done which showed a new
right lower lobe thrombus. Patient was admitted to medical floor and was started on heparin drip and hematology were consulted. Clinically question of this being an Eliquis failure. Patient developed generalized erythematous maculopapular rash
after being initiated on heparin and felt to having allergic reaction to heparin, heparin drip was changed to subcutaneous fondaparinux. A follow-up echocardiogram was done which did not show any signs of RV strain. Bilateral lower extremity
venous Doppler was negative for any thrombosis. After evaluation by hematology patient was planned to be transition to warfarin and was started on bridging. On day 2 patient developed again left calf pain, repeat ultrasound was done which did not
show any new thrombosis. At this point patient was discharged to home with ongoing warfarin therapy. Patient plan to follow-up with hematology office for INR check and management.
Important imaging findings :
None
Procedure findings :
None
Discharge Plan
-
Patient Disposition: Home with Home Care
Discharge Diagnosis/Procedures: PE, recent Left SHERRY
Condition: Fair
Diet: Regular
Activity: As tolerated
Driving Restrictions: No driving
Bathing Restrictions: OK to Shower
Blood Work: INR check on
Activity Restrictions/Additional Instructions:
Call Dr Mendez (keno writer) office for any question regarding Warfarin issues.
Referrals:
Vaishali Mendez MD [Active] -
Kaylynn Oconnell MD [Family Provider] - in one week
Additional Discharge Medication Instructions: STOP eliquis/Aspirin. You will be on warfarin instead.
Prescriptions:
New
polyethylene glycol 3350 [HealthyLax] 17 gram Powder In Packet
17 g PO DAILY Qty: 30 0RF
acetaminophen [Tylenol Extra Strength] 500 mg Tablet
1,000 mg PO TID Qty: 90 0RF
warfarin [Jantoven] 5 mg Tablet
5 mg PO QPM 30 Days Qty: 30 2RF
oxycodone 5 mg Tablet
5 mg PO Q6HPRN PRN (Reason: severe pain) Qty: 14 0RF
Continued
atorvastatin 20 mg Tablet
20 mg PO QPM
sertraline 50 mg Tablet
50 mg PO QPM
cholecalciferol (vitamin D3) [Vitamin D3] 25 mcg (1,000 unit) Tablet
25 mcg PO DAILY
zolpidem 10 mg Tablet
5 mg PO HSPRN PRN (Reason: insomnia)
Discontinued
Eliquis 5 mg Tablet
5 mg PO BID
aspirin 81 mg Tablet,Delayed Release (/Ec)
162 mg PO DAILY PRN (Reason: chest pains)
Discharge Orders:
Discharge Patient (As Directed); Ordered 08/20/23
Ordered By: Bill Zayas
Discharge Date and Time
Discharge Date/Time: 08/20/23 18:39
== END 2023-08-20 18:39 | disposition home health service (06) | DRG 919 ==
LOC: 4 EAST ACU 13:15
PROVIDERS: Family Medicine; ADMITTING PHYSICIAN Internal Medicine; ATTENDING PHYSICIAN Hospitalist; CONSULT PHYSICIAN Internal Medicine Hematology & Oncology; EMERGENCY PHYSICIAN Emergency Medicine; FAMILY PHYSICIAN Internal Medicine
DX: T85.868A Thrombosis due to other internal prosthetic devices, implants and grafts, initial encounter (principal); I26.99 Other pulmonary embolism without acute cor pulmonale; R21 Rash and other nonspecific skin eruption; E78.00 Pure hypercholesterolemia, unspecified; E66.09 Other obesity due to excess calories; Z68.30 Body mass index [BMI] 30.0-30.9, adult; Z79.82 Long term (current) use of aspirin; Y79.2 Prosthetic and other implants, materials and accessory orthopedic devices associated with adverse incidents
CPT/HCPCS: 71275; 80053; 84484; 85025; 85027; 85610; 85730; 86850; 86900; 86901; 93005; 93306; 93970; 93971; 94760; 96365; 96366; 97162; 99285; Q9967

== ENCOUNTER → 2023-09-05 10:34 | Outpatient (REF) | payer MEDICARE, SELFPAY ==
[2023-09-05 10:58] LABS: % Basophils 0.2 % (0-2); % Eosinophils 1.4 % (0-6); % Immature Granulocytes 0.4 % (0-0.5); % Lymphocytes 27.5 % (20.5-51.1); % Monocytes 8.5 % (1.7-9.3); Absolute Eosinophils 0.1 10^3/uL (0-0.7); Absolute Lymphocytes 2.6 10^3/uL (1.2-3.4); Absolute Monocytes 0.8 10^3/uL (0.1-0.6); Absolute Neutrophils 5.8 10^3/uL (1.4-6.5); Hematocrit 38.8 % (37.0-47.0); Hemoglobin 12.4 g/dL (12.0-16.0); Mean Corpuscular Hgb 27.9 pg (27.0-31.0); Mean Corpuscular Volume 87.2 fL (81.0-99.0); Mean Platelet Volume 9.1 fL (7.4-10.4); Nucleated Red Blood Cells % 0 %; Platelet Count 382 10^3/uL (130-400); Red Blood Cell Count 4.45 10^6/uL (4.20-5.40); Red Cell Dist. Width 14.5 % (11.5-14.5); White Blood Cell Count 9.4 10^3/uL (4.8-10.8)
== END ==
LOC: REG 10:34
PROVIDERS: ATTENDING PHYSICIAN Internal Medicine Hematology & Oncology; FAMILY PHYSICIAN Internal Medicine
DX: I26.99 Other pulmonary embolism without acute cor pulmonale (principal); Z86.718 Personal history of other venous thrombosis and embolism
CPT/HCPCS: 36415; 85025

== ENCOUNTER → 2023-09-06 10:43 | Outpatient (REF) | payer MEDICARE, SELFPAY ==
[2023-09-06 11:35] LABS: INR 2.18; PT 24.2 Sec (11.4-14.6)
== END ==
LOC: REG 10:43
PROVIDERS: ATTENDING PHYSICIAN Internal Medicine Hematology & Oncology; FAMILY PHYSICIAN Internal Medicine
DX: I26.99 Other pulmonary embolism without acute cor pulmonale (principal); Z86.718 Personal history of other venous thrombosis and embolism
CPT/HCPCS: 36415; 85610

== ENCOUNTER → 2023-09-18 10:56 | Outpatient (REF) | payer MEDICARE, SELFPAY ==
[2023-09-18 12:31] LABS: INR 2.36; PT 26.1 Sec (11.4-14.6)
== END ==
LOC: REG 10:56
PROVIDERS: ATTENDING PHYSICIAN Internal Medicine Hematology & Oncology
DX: I26.99 Other pulmonary embolism without acute cor pulmonale (principal); Z86.718 Personal history of other venous thrombosis and embolism
CPT/HCPCS: 36415; 85610

== ENCOUNTER → 2023-09-25 10:33 | Outpatient (REF) | payer MEDICARE, SELFPAY ==
[2023-09-25 13:47] LABS: INR 3.45; PT 35.3 Sec (11.4-14.6)
== END ==
LOC: REG 10:33
PROVIDERS: ATTENDING PHYSICIAN Internal Medicine Hematology & Oncology; FAMILY PHYSICIAN Internal Medicine
DX: I26.99 Other pulmonary embolism without acute cor pulmonale (principal); Z86.718 Personal history of other venous thrombosis and embolism
CPT/HCPCS: 36415; 85610

== ENCOUNTER → 2023-10-02 09:20 | Outpatient (REF) | payer MEDICARE, SELFPAY ==
[2023-10-02 10:28] LABS: INR 3.49; PT 35.6 Sec (11.4-14.6)
== END ==
LOC: REG 09:20
PROVIDERS: ATTENDING PHYSICIAN Internal Medicine Hematology & Oncology; FAMILY PHYSICIAN Internal Medicine
DX: I26.99 Other pulmonary embolism without acute cor pulmonale (principal); Z86.718 Personal history of other venous thrombosis and embolism
CPT/HCPCS: 36415; 85610

== ENCOUNTER → 2023-10-09 09:30 | Outpatient (REF) | payer MEDICARE, SELFPAY ==
[2023-10-09 10:04] LABS: INR 2.72; PT 29.2 Sec (11.4-14.6)
== END ==
LOC: REG 09:30
PROVIDERS: ATTENDING PHYSICIAN Internal Medicine Hematology & Oncology; FAMILY PHYSICIAN Internal Medicine
DX: I26.99 Other pulmonary embolism without acute cor pulmonale (principal); Z86.718 Personal history of other venous thrombosis and embolism
CPT/HCPCS: 36415; 85610

== ENCOUNTER → 2023-10-16 09:05 | Outpatient (REF) | payer MEDICARE, SELFPAY ==
[2023-10-16 10:04] LABS: PT 24.7 Sec (11.4-14.6)
== END ==
LOC: REG 09:05
PROVIDERS: ATTENDING PHYSICIAN Internal Medicine Hematology & Oncology; FAMILY PHYSICIAN Internal Medicine
DX: I26.99 Other pulmonary embolism without acute cor pulmonale (principal); Z86.718 Personal history of other venous thrombosis and embolism
CPT/HCPCS: 36415; 85610

== ENCOUNTER → 2023-10-23 09:59 | Outpatient (REF) | payer MEDICARE, SELFPAY | LOC: REG 09:59 | PROVIDERS: ATTENDING PHYSICIAN Internal Medicine Hematology & Oncology | DX: I26.99 Other pulmonary embolism without acute cor pulmonale (principal); Z86.718 Personal history of other venous thrombosis and embolism | CPT/HCPCS: 36415; 85610 ==

== ENCOUNTER → 2023-10-30 08:58 | Outpatient (REF) | payer MEDICARE, SELFPAY ==
[2023-10-30 11:01] LABS: INR 2.12
== END ==
LOC: REG 08:58
PROVIDERS: ATTENDING PHYSICIAN Internal Medicine Hematology & Oncology; FAMILY PHYSICIAN Internal Medicine
DX: I26.99 Other pulmonary embolism without acute cor pulmonale (principal); Z86.718 Personal history of other venous thrombosis and embolism
CPT/HCPCS: 36415; 85610

== ENCOUNTER → 2023-11-06 07:56 | Outpatient (REF) | payer MEDICARE, SELFPAY ==
[2023-11-06 08:22] LABS: INR 2.15; PT 24.2 Sec (11.4-14.6)
== END ==
LOC: REG 07:56
PROVIDERS: ATTENDING PHYSICIAN Internal Medicine Hematology & Oncology; FAMILY PHYSICIAN Family Medicine
DX: I26.99 Other pulmonary embolism without acute cor pulmonale (principal); Z86.718 Personal history of other venous thrombosis and embolism
CPT/HCPCS: 36415; 85610

== ENCOUNTER → 2023-11-13 09:01 | Outpatient (REF) | payer MEDICARE, SELFPAY ==
[2023-11-13 09:37] LABS: INR 2.13
== END ==
LOC: REG 09:01
PROVIDERS: ATTENDING PHYSICIAN Internal Medicine Hematology & Oncology; FAMILY PHYSICIAN Internal Medicine
DX: I26.99 Other pulmonary embolism without acute cor pulmonale (principal); Z86.718 Personal history of other venous thrombosis and embolism
CPT/HCPCS: 36415; 85610

== ENCOUNTER → 2023-11-20 09:08 | Outpatient (REF) | payer MEDICARE, SELFPAY ==
[2023-11-20 09:49] LABS: INR 2.16
== END ==
LOC: REG 09:08
PROVIDERS: ATTENDING PHYSICIAN Internal Medicine Hematology & Oncology; FAMILY PHYSICIAN Internal Medicine
DX: I26.99 Other pulmonary embolism without acute cor pulmonale (principal); Z86.718 Personal history of other venous thrombosis and embolism
CPT/HCPCS: 36415; 85610

== ENCOUNTER → 2023-11-27 08:42 | Outpatient (REF) | payer MEDICARE, SELFPAY ==
[2023-11-27 10:24] LABS: INR 2.67; PT 28.8 Sec (11.4-14.6)
== END ==
LOC: REG 08:42
PROVIDERS: ATTENDING PHYSICIAN Internal Medicine Hematology & Oncology; FAMILY PHYSICIAN Internal Medicine
DX: I26.99 Other pulmonary embolism without acute cor pulmonale (principal); Z86.718 Personal history of other venous thrombosis and embolism
CPT/HCPCS: 36415; 85610

== ENCOUNTER → 2023-12-04 09:26 | Outpatient (REF) | payer MEDICARE, SELFPAY ==
[2023-12-04 10:11] LABS: INR 2.44; PT 26.8 Sec (11.4-14.6)
== END ==
LOC: REG 09:26
PROVIDERS: ATTENDING PHYSICIAN Internal Medicine Hematology & Oncology; FAMILY PHYSICIAN Internal Medicine
DX: I26.99 Other pulmonary embolism without acute cor pulmonale (principal); Z86.718 Personal history of other venous thrombosis and embolism
CPT/HCPCS: 36415; 85610

== ENCOUNTER → 2023-12-11 08:17 | Outpatient (REF) | payer MEDICARE, SELFPAY ==
[2023-12-11 09:00] LABS: % Basophils 0.3 % (0-2); % Eosinophils 1.5 % (0-6); % Immature Granulocytes 0.3 % (0-0.5); % Lymphocytes 27.9 % (20.5-51.1); % Monocytes 6.1 % (1.7-9.3); % Neutrophils 63.9 % (42.2-75.2); Absolute Eosinophils 0.1 10^3/uL (0-0.7); Absolute Lymphocytes 2.6 10^3/uL (1.2-3.4); Absolute Monocytes 0.6 10^3/uL (0.1-0.6); Absolute Neutrophils 5.9 10^3/uL (1.4-6.5); Hematocrit 42.3 % (37.0-47.0); Hemoglobin 13.5 g/dL (12.0-16.0); Mean Corp Hgb Conc. 31.9 g/dL (33.0-37.0); Mean Corpuscular Hgb 25.9 pg (27.0-31.0); Mean Platelet Volume 10.2 fL (7.4-10.4); Nucleated Red Blood Cells % 0 %; Platelet Count 333 10^3/uL (130-400); Red Blood Cell Count 5.22 10^6/uL (4.20-5.40); Red Cell Dist. Width 14.7 % (11.5-14.5); White Blood Cell Count 9.2 10^3/uL (4.8-10.8)
[2023-12-11 09:14] LABS: INR 2.84; PT 30.2 Sec (11.4-14.6)
[2023-12-11 09:45] LABS: Iron 24 ug/dl (37-170)
[2023-12-11 09:54] LABS: Percent Saturation 6 % (20-50); Total Iron Binding Capacity 377 ug/dl (265-497)
[2023-12-11 10:18] LABS: Ferritin 15.3 ng/ml (11.1-264.0)
== END ==
LOC: REG 08:17
PROVIDERS: ATTENDING PHYSICIAN Internal Medicine Hematology & Oncology; FAMILY PHYSICIAN Internal Medicine
DX: I26.99 Other pulmonary embolism without acute cor pulmonale (principal); Z86.718 Personal history of other venous thrombosis and embolism; D50.9 Iron deficiency anemia, unspecified
CPT/HCPCS: 36415; 82728; 83540; 83550; 85025; 85610

== ENCOUNTER → 2023-12-18 09:13 | Outpatient (REF) | payer MEDICARE, SELFPAY ==
[2023-12-18 09:44] LABS: INR 2.63; PT 28.4 Sec (11.4-14.6)
== END ==
LOC: REG 09:13
PROVIDERS: ATTENDING PHYSICIAN Internal Medicine Hematology & Oncology; FAMILY PHYSICIAN Internal Medicine
DX: I26.99 Other pulmonary embolism without acute cor pulmonale (principal); Z86.718 Personal history of other venous thrombosis and embolism
CPT/HCPCS: 36415; 85610

== ENCOUNTER → 2024-01-01 08:53 | Outpatient (REF) | payer MEDICARE, SELFPAY ==
[2024-01-01 09:49] LABS: PT 26.5 Sec (11.4-14.6)
== END ==
LOC: REG 08:53
PROVIDERS: ATTENDING PHYSICIAN Internal Medicine Hematology & Oncology; FAMILY PHYSICIAN Internal Medicine
DX: I26.99 Other pulmonary embolism without acute cor pulmonale (principal); Z86.718 Personal history of other venous thrombosis and embolism
CPT/HCPCS: 36415; 85610

== ENCOUNTER → 2024-01-02 08:28 | Outpatient (REF) | payer MEDICARE, SELFPAY ==
[2024-01-02 11:18] LABS: Glycohemoglobin (HgbA1c) 6.3 % (4.0-5.6)
[2024-01-02 11:34] LABS: ALT (SGPT) 25 U/L (0-35); AST (SGOT) 24 U/L (14-36); Albumin 4.1 g/dl (3.5-5.0); Alkaline Phosphatase 140 U/L (38-126); Blood Urea Nitrogen 17 mg/dl (7-17); Calcium 9.6 mg/dl (8.4-10.2); Carbon Dioxide 28 mmol/L (22-30); Chloride 104 mmol/L (98-107); Glucose 104 mg/dl (70-99); HDL Cholesterol 77 mg/dl; LDL Cholesterol, Calculated 96 mg/dl; Potassium 4.6 mmol/L (3.5-5.1); Sodium 138 mmol/L (135-145); Total Bilirubin 0.6 mg/dl (0.2-1.3); Total Cholesterol 193 mg/dl (50-199); Total Protein 6.3 g/dl (6.3-8.2); Triglyceride 100 mg/dl (10-149); Very Low Density Lipoprotein 20 mg/dl (0-30); eGFR > 60.00
== END ==
LOC: HWLAB 08:28
PROVIDERS: ATTENDING PHYSICIAN Internal Medicine
DX: R73.03 Prediabetes (principal); E78.5 Hyperlipidemia, unspecified
CPT/HCPCS: 36415; 80053; 80061; 83036

== ENCOUNTER → 2024-01-08 07:06 | Outpatient (REF) | payer MEDICARE, SELFPAY ==
[2024-01-08 11:10] LABS: INR 2.69
== END ==
LOC: HWLAB 07:06
PROVIDERS: ATTENDING PHYSICIAN Internal Medicine Hematology & Oncology; FAMILY PHYSICIAN Internal Medicine
DX: I26.99 Other pulmonary embolism without acute cor pulmonale (principal); Z86.718 Personal history of other venous thrombosis and embolism
CPT/HCPCS: 36415; 85610

== ENCOUNTER → 2024-01-15 06:28 | Outpatient (REF) | payer MEDICARE, SELFPAY ==
[2024-01-15 10:17] LABS: INR 2.45; PT 26.9 Sec (11.4-14.6)
[2024-01-15 23:38] LABS: IgA 67 mg/dl (70-400)
[2024-01-16 23:55] LABS: Endomysial IgA Antibody Titer <1:10 (<1:10)
== END ==
LOC: HWLAB 06:28
PROVIDERS: ATTENDING PHYSICIAN Internal Medicine Hematology & Oncology; FAMILY PHYSICIAN Internal Medicine; REFERRING PHYSICIAN Internal Medicine Gastroenterology
DX: I26.99 Other pulmonary embolism without acute cor pulmonale (principal); E61.1 Iron deficiency
CPT/HCPCS: 36415; 82784; 83516; 85610; 86231

== ENCOUNTER → 2024-01-18 13:08 | Outpatient (REF) | payer MEDICARE, SELFPAY | LOC: WDC 13:08 | PROVIDERS: ATTENDING PHYSICIAN Internal Medicine | DX: Z12.31 Encounter for screening mammogram for malignant neoplasm of breast (principal) | CPT/HCPCS: 77063; 77067 ==

== ENCOUNTER → 2024-01-22 06:41 | Outpatient (REF) | payer MEDICARE, SELFPAY ==
[2024-01-22 09:27] LABS: INR 2.48; PT 27.1 Sec (11.4-14.6)
== END ==
LOC: HWLAB 06:41
PROVIDERS: ATTENDING PHYSICIAN Internal Medicine Hematology & Oncology; FAMILY PHYSICIAN Internal Medicine
DX: I26.99 Other pulmonary embolism without acute cor pulmonale (principal); Z86.718 Personal history of other venous thrombosis and embolism
CPT/HCPCS: 36415; 85610

== ENCOUNTER → 2024-01-27 06:48 | Outpatient (REF) | payer MEDICARE, SELFPAY ==
[2024-01-27 09:40] LABS: INR 1.68; PT 19.6 Sec (11.4-14.6)
== END ==
LOC: HWLAB 06:48
PROVIDERS: ATTENDING PHYSICIAN Internal Medicine Hematology & Oncology; FAMILY PHYSICIAN Internal Medicine
DX: I26.99 Other pulmonary embolism without acute cor pulmonale (principal); Z86.718 Personal history of other venous thrombosis and embolism
CPT/HCPCS: 36415; 85610

== ENCOUNTER → 2024-01-30 06:40 | Day surgery (SDC) | payer MEDICARE, SELFPAY | LOC: GI 06:40 | PROVIDERS: ATTENDING PHYSICIAN Internal Medicine Gastroenterology | DX: K44.9 Diaphragmatic hernia without obstruction or gangrene (principal); D50.9 Iron deficiency anemia, unspecified; K29.50 Unspecified chronic gastritis without bleeding; B96.81 Helicobacter pylori [H. pylori] as the cause of diseases classified elsewhere | CPT/HCPCS: 43239; 88305; 88342 ==

== ENCOUNTER → 2024-02-03 09:25 | Outpatient (REF) | payer MEDICARE, SELFPAY ==
[2024-02-03 10:49] LABS: INR 1.23; PT 15.3 Sec (11.4-14.6)
== END ==
LOC: REG 09:25
PROVIDERS: ATTENDING PHYSICIAN Internal Medicine Hematology & Oncology; FAMILY PHYSICIAN Internal Medicine
DX: I26.99 Other pulmonary embolism without acute cor pulmonale (principal); Z86.718 Personal history of other venous thrombosis and embolism
CPT/HCPCS: 36415; 85610

== ENCOUNTER → 2024-02-06 09:36 | Outpatient (REF) | payer MEDICARE, SELFPAY ==
[2024-02-06 11:09] LABS: INR 1.71; PT 20.2 Sec (11.4-14.6)
== END ==
LOC: REG 09:36
PROVIDERS: ATTENDING PHYSICIAN Internal Medicine Hematology & Oncology; FAMILY PHYSICIAN Internal Medicine
DX: I26.99 Other pulmonary embolism without acute cor pulmonale (principal); Z86.718 Personal history of other venous thrombosis and embolism
CPT/HCPCS: 36415; 85610

== ENCOUNTER → 2024-02-10 06:40 | Outpatient (REF) | payer MEDICARE, SELFPAY ==
[2024-02-10 08:22] LABS: INR 1.95; PT 22.1 Sec (11.4-14.6)
== END ==
LOC: REG 06:40
PROVIDERS: ATTENDING PHYSICIAN Internal Medicine Hematology & Oncology; FAMILY PHYSICIAN Internal Medicine
DX: I26.99 Other pulmonary embolism without acute cor pulmonale (principal); Z86.718 Personal history of other venous thrombosis and embolism
CPT/HCPCS: 36415; 85610

== ENCOUNTER → 2024-02-12 08:07 | Outpatient (REF) | payer MEDICARE, SELFPAY ==
[2024-02-12 10:08] LABS: INR 2.59; PT 28.1 Sec (11.4-14.6)
== END ==
LOC: REG 08:07
PROVIDERS: ATTENDING PHYSICIAN Internal Medicine Hematology & Oncology; FAMILY PHYSICIAN Internal Medicine
DX: I26.99 Other pulmonary embolism without acute cor pulmonale (principal); Z86.718 Personal history of other venous thrombosis and embolism
CPT/HCPCS: 36415; 85610

== ENCOUNTER → 2024-02-19 06:29 | Outpatient (REF) | payer MEDICARE, SELFPAY ==
[2024-02-19 10:03] LABS: INR 2.74; PT 29.4 Sec (11.4-14.6)
== END ==
LOC: HWLAB 06:29
PROVIDERS: ATTENDING PHYSICIAN Internal Medicine Hematology & Oncology; FAMILY PHYSICIAN Internal Medicine
DX: I26.99 Other pulmonary embolism without acute cor pulmonale (principal); Z86.718 Personal history of other venous thrombosis and embolism
CPT/HCPCS: 36415; 85610

== ENCOUNTER → 2024-02-26 06:21 | Outpatient (REF) | payer MEDICARE, SELFPAY ==
[2024-02-26 10:17] LABS: INR 2.65; PT 28.6 Sec (11.4-14.6)
== END ==
LOC: HWLAB 06:21
PROVIDERS: ATTENDING PHYSICIAN Internal Medicine Hematology & Oncology; FAMILY PHYSICIAN Internal Medicine
DX: I26.99 Other pulmonary embolism without acute cor pulmonale (principal)
CPT/HCPCS: 36415; 85610

== ENCOUNTER → 2024-03-04 06:24 | Outpatient (REF) | payer MEDICARE, SELFPAY ==
[2024-03-04 09:41] LABS: INR 2.31; PT 25.7 Sec (11.4-14.6)
== END ==
LOC: HWLAB 06:24
PROVIDERS: ATTENDING PHYSICIAN Internal Medicine Hematology & Oncology; FAMILY PHYSICIAN Internal Medicine
DX: I26.99 Other pulmonary embolism without acute cor pulmonale (principal)
CPT/HCPCS: 36415; 85610

== ENCOUNTER → 2024-03-11 06:04 | Outpatient (REF) | payer MEDICARE, SELFPAY ==
[2024-03-11 09:49] LABS: INR 2.48; PT 27.1 Sec (11.4-14.6)
== END ==
LOC: HWLAB 06:04
PROVIDERS: ATTENDING PHYSICIAN Internal Medicine Hematology & Oncology; FAMILY PHYSICIAN Internal Medicine
DX: I26.99 Other pulmonary embolism without acute cor pulmonale (principal); Z86.718 Personal history of other venous thrombosis and embolism
CPT/HCPCS: 36415; 85610

== ENCOUNTER → 2024-03-13 09:56 | Outpatient (REF) | payer MEDICARE, SELFPAY ==
[2024-03-13 11:43] LABS: % Basophils 0.3 % (0-2); % Eosinophils 0.9 % (0-6); % Immature Granulocytes 0.4 % (0-0.5); % Lymphocytes 30.7 % (20.5-51.1); % Monocytes 7.3 % (1.7-9.3); % Neutrophils 60.4 % (42.2-75.2); Absolute Eosinophils 0.1 10^3/uL (0-0.7); Absolute Immature Granulocytes 0.1 10^3/uL (0-0.05); Absolute Lymphocytes 3.6 10^3/uL (1.2-3.4); Absolute Monocytes 0.9 10^3/uL (0.1-0.6); Absolute Neutrophils 7.1 10^3/uL (1.4-6.5); Hematocrit 40.7 % (37.0-47.0); Hemoglobin 13.2 g/dL (12.0-16.0); Mean Corp Hgb Conc. 32.4 g/dL (33.0-37.0); Mean Corpuscular Hgb 26.2 pg (27.0-31.0); Mean Corpuscular Volume 80.8 fL (81.0-99.0); Mean Platelet Volume 10.2 fL (7.4-10.4); Nucleated Red Blood Cells % 0 %; Platelet Count 306 10^3/uL (130-400); Red Blood Cell Count 5.04 10^6/uL (4.20-5.40); Red Cell Dist. Width 14.3 % (11.5-14.5); White Blood Cell Count 11.8 10^3/uL (4.8-10.8)
[2024-03-13 11:46] LABS: Iron 71 ug/dl (37-170)
[2024-03-13 11:55] LABS: Percent Saturation 18 % (20-50); Total Iron Binding Capacity 392 ug/dl (265-497)
[2024-03-13 12:22] LABS: Ferritin 13.6 ng/ml (11.1-264.0)
== END ==
LOC: HWLAB 09:56
PROVIDERS: ATTENDING PHYSICIAN Internal Medicine Hematology & Oncology; FAMILY PHYSICIAN Internal Medicine
DX: I26.99 Other pulmonary embolism without acute cor pulmonale (principal); Z86.718 Personal history of other venous thrombosis and embolism; D50.9 Iron deficiency anemia, unspecified
CPT/HCPCS: 36415; 82728; 83540; 83550; 85025

== ENCOUNTER → 2024-03-18 06:01 | Outpatient (REF) | payer MEDICARE, SELFPAY ==
[2024-03-18 10:15] LABS: INR 2.57; PT 27.9 Sec (11.4-14.6)
== END ==
LOC: HWLAB 06:01
PROVIDERS: ATTENDING PHYSICIAN Internal Medicine Hematology & Oncology; FAMILY PHYSICIAN Internal Medicine
DX: I26.99 Other pulmonary embolism without acute cor pulmonale (principal); Z86.718 Personal history of other venous thrombosis and embolism
CPT/HCPCS: 36415; 85610

== ENCOUNTER → 2024-03-20 11:44 | Outpatient (REF) | payer MEDICARE, SELFPAY ==
[2024-03-20 12:48] LABS: D-Dimer < 0.27 ug/mlFEU (0.00-0.50)
== END ==
LOC: REG 11:44
PROVIDERS: ATTENDING PHYSICIAN Internal Medicine Hematology & Oncology; FAMILY PHYSICIAN Internal Medicine
DX: I26.99 Other pulmonary embolism without acute cor pulmonale (principal); Z86.718 Personal history of other venous thrombosis and embolism; E61.1 Iron deficiency
CPT/HCPCS: 36415; 85379

== ENCOUNTER → 2024-04-24 08:17 | Outpatient (REF) | payer MEDICARE, SELFPAY ==
[2024-04-24 09:33] LABS: % Basophils 0.3 % (0-2); % Eosinophils 1.1 % (0-6); % Immature Granulocytes 0.3 % (0-0.5); % Lymphocytes 29.6 % (20.5-51.1); % Neutrophils 62.7 % (42.2-75.2); Absolute Eosinophils 0.1 10^3/uL (0-0.7); Absolute Lymphocytes 2.2 10^3/uL (1.2-3.4); Absolute Monocytes 0.5 10^3/uL (0.1-0.6); Absolute Neutrophils 4.7 10^3/uL (1.4-6.5); Hematocrit 44.8 % (37.0-47.0); Hemoglobin 14.6 g/dL (12.0-16.0); Mean Corp Hgb Conc. 32.6 g/dL (33.0-37.0); Mean Corpuscular Hgb 27.5 pg (27.0-31.0); Mean Corpuscular Volume 84.4 fL (81.0-99.0); Mean Platelet Volume 9.8 fL (7.4-10.4); Nucleated Red Blood Cells % 0 %; Platelet Count 274 10^3/uL (130-400); Red Blood Cell Count 5.31 10^6/uL (4.20-5.40); Red Cell Dist. Width 15.5 % (11.5-14.5); White Blood Cell Count 7.5 10^3/uL (4.8-10.8)
[2024-04-24 10:24] LABS: D-Dimer 0.84 ug/mlFEU (0.00-0.50)
[2024-04-24 10:28] LABS: ALT (SGPT) 32 U/L (0-35); AST (SGOT) 27 U/L (14-36); Albumin 4.5 g/dl (3.5-5.0); Alkaline Phosphatase 134 U/L (38-126); Blood Urea Nitrogen 21 mg/dl (7-17); Calcium 9.7 mg/dl (8.4-10.2); Carbon Dioxide 26 mmol/L (22-30); Chloride 104 mmol/L (98-107); Glucose 111 mg/dl (70-99); HDL Cholesterol 80 mg/dl; Iron 119 ug/dl (37-170); LDL Cholesterol, Calculated 93 mg/dl; Potassium 4.3 mmol/L (3.5-5.1); Sodium 145 mmol/L (135-145); Total Bilirubin 0.6 mg/dl (0.2-1.3); Total Cholesterol 190 mg/dl (50-199); Total Protein 6.8 g/dl (6.3-8.2); Triglyceride 88 mg/dl (10-149); Very Low Density Lipoprotein 17 mg/dl (0-30); eGFR > 60.00
[2024-04-24 10:30] LABS: Glycohemoglobin (HgbA1c) 5.6 % (4.0-5.6)
[2024-04-24 10:38] LABS: Percent Saturation 42 % (20-50); Total Iron Binding Capacity 283 ug/dl (265-497)
[2024-04-26 07:26] LABS: Cardiolipin IgA Antibody <10 APL (<=11); Cardiolipin IgM Antibody <10 MPL (<=12); Cardiolipin Igg Antibody <10 GPL (<=14)
[2024-04-26 07:36] LABS: Beta-2-Glycoprotein I Ab. IgG <10 SGU (<=20); Beta-2-Glycoprotein I Ab. IgM 11 SMU (<=20)
[2024-04-26 19:06] LABS: Anti-Thrombin III Activity 128 % (76-128)
== END ==
LOC: HWLAB 08:17
PROVIDERS: ATTENDING PHYSICIAN Internal Medicine Hematology & Oncology; FAMILY PHYSICIAN Internal Medicine
DX: I10 Essential (primary) hypertension (principal); R73.9 Hyperglycemia, unspecified; E78.00 Pure hypercholesterolemia, unspecified; I26.99 Other pulmonary embolism without acute cor pulmonale; E61.1 Iron deficiency; Z83.718 Family history of other colon polyps; E78.5 Hyperlipidemia, unspecified
CPT/HCPCS: 36415; 80053; 80061; 81240; 81241; 82728; 83036; 83540; 83550; 85025; 85300; 85379; 85610; 85613; 85730; 86146; 86147

== ENCOUNTER → 2024-05-01 08:15 | Outpatient (REF) | payer MEDICARE, SELFPAY ==
[2024-05-01 12:16] LABS: D-Dimer 0.71 ug/mlFEU (0.00-0.50)
== END ==
LOC: HWLAB 08:15
PROVIDERS: ATTENDING PHYSICIAN Internal Medicine Hematology & Oncology; FAMILY PHYSICIAN Internal Medicine
DX: I26.99 Other pulmonary embolism without acute cor pulmonale (principal); Z86.718 Personal history of other venous thrombosis and embolism; E61.1 Iron deficiency
CPT/HCPCS: 36415; 85379

== ENCOUNTER → 2024-06-26 09:48 | Outpatient (REF) | payer MEDICARE, SELFPAY ==
[2024-06-27 13:30] LABS: H. pylori Breath Test Negative (Negative)
== END ==
LOC: LAB 09:48
PROVIDERS: ATTENDING PHYSICIAN Internal Medicine Gastroenterology; FAMILY PHYSICIAN Internal Medicine
DX: A04.8 Other specified bacterial intestinal infections (principal)
CPT/HCPCS: 83013

== ENCOUNTER → 2024-07-03 15:09 | Outpatient (REF) | payer MEDICARE, SELFPAY | LOC: RAD 15:09 | PROVIDERS: ATTENDING PHYSICIAN Nurse Practitioner Adult Health | DX: R05.3 Chronic cough (principal) | CPT/HCPCS: 71046 ==

== ENCOUNTER → 2024-07-30 09:49 | Outpatient (REF) | payer MEDICARE, SELFPAY ==
[2024-07-30 12:59] LABS: % Basophils 0.5 % (0-2); % Eosinophils 1.2 % (0-6); % Immature Granulocytes 0.4 % (0-0.5); % Lymphocytes 28.9 % (20.5-51.1); % Monocytes 6.4 % (1.7-9.3); % Neutrophils 62.6 % (42.2-75.2); Absolute Basophils 0.1 10^3/uL (0-0.2); Absolute Eosinophils 0.1 10^3/uL (0-0.7); Absolute Lymphocytes 2.6 10^3/uL (1.2-3.4); Absolute Monocytes 0.6 10^3/uL (0.1-0.6); Absolute Neutrophils 5.7 10^3/uL (1.4-6.5); Hematocrit 45.6 % (37.0-47.0); Hemoglobin 14.5 g/dL (12.0-16.0); Mean Corp Hgb Conc. 31.8 g/dL (33.0-37.0); Mean Corpuscular Hgb 28.4 pg (27.0-31.0); Mean Corpuscular Volume 89.2 fL (81.0-99.0); Mean Platelet Volume 10.2 fL (7.4-10.4); Nucleated Red Blood Cells % 0 %; Platelet Count 328 10^3/uL (130-400); Red Blood Cell Count 5.11 10^6/uL (4.20-5.40); Red Cell Dist. Width 13.2 % (11.5-14.5); White Blood Cell Count 9.1 10^3/uL (4.8-10.8)
[2024-07-30 13:17] LABS: Iron 101 ug/dl (37-170)
[2024-07-30 13:27] LABS: Percent Saturation 34 % (20-50); Total Iron Binding Capacity 291 ug/dl (265-497)
== END ==
LOC: HWLAB 09:49
PROVIDERS: ATTENDING PHYSICIAN Internal Medicine Hematology & Oncology; FAMILY PHYSICIAN Internal Medicine
DX: I26.99 Other pulmonary embolism without acute cor pulmonale (principal); Z86.718 Personal history of other venous thrombosis and embolism; E61.1 Iron deficiency
CPT/HCPCS: 36415; 82728; 83540; 83550; 85025

== ENCOUNTER → 2024-08-25 06:42 | Outpatient (REF) | payer MEDICARE, SELFPAY ==
[2024-08-25 09:50] LABS: ALT (SGPT) 18 U/L (0-35); AST (SGOT) 20 U/L (14-36); Albumin 3.8 g/dl (3.5-5.0); Alkaline Phosphatase 107 U/L (38-126); Blood Urea Nitrogen 24 mg/dl (7-17); Calcium 9.9 mg/dl (8.4-10.2); Carbon Dioxide 31 mmol/L (22-30); Chloride 104 mmol/L (98-107); Glucose 111 mg/dl (70-99); HDL Cholesterol 62 mg/dl; LDL Cholesterol, Calculated 90 mg/dl; Potassium 4.5 mmol/L (3.5-5.1); Sodium 140 mmol/L (135-145); Total Bilirubin 0.7 mg/dl (0.2-1.3); Total Cholesterol 170 mg/dl (50-199); Triglyceride 93 mg/dl (10-149); Very Low Density Lipoprotein 18 mg/dl (0-30); eGFR > 60.00
[2024-08-25 11:12] LABS: Glycohemoglobin (HgbA1c) 5.7 % (4.0-5.6)
== END ==
LOC: HWLAB 06:42
PROVIDERS: ATTENDING PHYSICIAN Internal Medicine
DX: I10 Essential (primary) hypertension (principal); E78.5 Hyperlipidemia, unspecified; R73.03 Prediabetes
CPT/HCPCS: 36415; 80053; 80061; 83036

== ENCOUNTER → 2024-12-23 06:15 | Outpatient (REF) | payer MEDICARE, SELFPAY ==
[2024-12-23 09:37] LABS: Hematocrit 44.1 % (37.0-47.0); Hemoglobin 14.4 g/dL (12.0-16.0); Mean Corp Hgb Conc. 32.7 g/dL (33.0-37.0); Mean Corpuscular Volume 87.5 fL (81.0-99.0); Nucleated Red Blood Cells % 0.2 %; Platelet Count 259 10^3/uL (130-400); Red Cell Dist. Width 13.1 % (11.5-14.5)
[2024-12-23 10:05] LABS: Glycohemoglobin (HgbA1c) 5.8 % (4.0-5.6)
[2024-12-23 10:24] LABS: ALT (SGPT) 19 U/L (0-35); AST (SGOT) 21 U/L (14-36); Albumin 4.2 g/dl (3.5-5.0); Alkaline Phosphatase 110 U/L (38-126); Blood Urea Nitrogen 22 mg/dl (7-17); Calcium 9.6 mg/dl (8.4-10.2); Carbon Dioxide 25 mmol/L (22-30); Chloride 106 mmol/L (98-107); Glucose 108 mg/dl (70-99); HDL Cholesterol 62 mg/dl; LDL Cholesterol, Calculated 99 mg/dl; Potassium 4.6 mmol/L (3.5-5.1); Sodium 139 mmol/L (135-145); Total Protein 6.3 g/dl (6.3-8.2); Very Low Density Lipoprotein 14 mg/dl (0-30); eGFR > 60.00
== END ==
LOC: HWLAB 06:15
PROVIDERS: ATTENDING PHYSICIAN Internal Medicine
DX: I10 Essential (primary) hypertension (principal); R73.03 Prediabetes; E78.5 Hyperlipidemia, unspecified
CPT/HCPCS: 36415; 80053; 80061; 83036; 84443; 85025

== ENCOUNTER → 2025-01-23 10:10 | Outpatient (REF) | payer MEDICARE, SELFPAY | LOC: WDC 10:10 | PROVIDERS: ATTENDING PHYSICIAN Internal Medicine | DX: Z12.31 Encounter for screening mammogram for malignant neoplasm of breast (principal) | CPT/HCPCS: 77063; 77067 ==

== ENCOUNTER → 2025-02-22 09:38 | Outpatient (REF) | payer MEDICARE, SELFPAY | LOC: HWRAD 09:38 | PROVIDERS: ATTENDING PHYSICIAN Specialist; FAMILY PHYSICIAN Internal Medicine | DX: M19.011 Primary osteoarthritis, right shoulder (principal); Z78.0 Asymptomatic menopausal state | CPT/HCPCS: 73200; 77080 ==

== ENCOUNTER 2025-03-16 06:26 | Outpatient (RCR) | payer MEDICARE, SELFPAY | END 2025-03-16 23:59 | disposition home or self-care (01) | LOC: RPT 06:26 | PROVIDERS: ATTENDING PHYSICIAN Specialist; FAMILY PHYSICIAN Internal Medicine | DX: M19.011 Primary osteoarthritis, right shoulder (principal); M25.511 Pain in right shoulder; Z73.6 Limitation of activities due to disability; M62.81 Muscle weakness (generalized); G89.29 Other chronic pain | CPT/HCPCS: 97110; 97162; 97535 ==

== ENCOUNTER 2025-03-23 07:21 | Outpatient (RCR) | payer MEDICARE, SELFPAY | END 2025-03-23 09:05 | disposition home or self-care (01) | LOC: RPT 07:21 | PROVIDERS: ATTENDING PHYSICIAN Specialist; FAMILY PHYSICIAN Internal Medicine | DX: M19.011 Primary osteoarthritis, right shoulder (principal); M25.511 Pain in right shoulder; Z73.6 Limitation of activities due to disability; M62.81 Muscle weakness (generalized); G89.29 Other chronic pain | CPT/HCPCS: 97010; 97110 ==

== ENCOUNTER → 2025-04-01 08:28 | Outpatient (REF) | payer MEDICARE, SELFPAY ==
[2025-04-01 09:03] VITALS: BP 150/76; BP_SYST 65; BMI 30.5
[2025-04-01 09:11] LABS: INR 0.97; PT 13.4 Sec (11.4-14.6)
[2025-04-01 10:34] VITALS: BP 155/63; BP_SYST 62
== END ==
LOC: RADI 08:28
PROVIDERS: ATTENDING PHYSICIAN Internal Medicine Hematology & Oncology; FAMILY PHYSICIAN Internal Medicine; REFERRING PHYSICIAN Physician Assistant
DX: D68.59 Other primary thrombophilia (principal); Z86.718 Personal history of other venous thrombosis and embolism
CPT/HCPCS: C1880; 36415; 37191; 85610

== ENCOUNTER 2025-04-06 10:01 | Inpatient (IN) | payer MEDICARE, SELFPAY ==
--- NOTE | 2025-03-16 12:22 | CM ---
Demographics: confirmed
Living situation: Lives alone, daughter available
Support Person Post Operatively: daughter, CM provided patient with private pay caregiver list
History of
VN: history, patient does not know agency.
SNF:
Outpatient: Pending surgical clearance
Has patient purchased required equipment: sling
PCP: confirmed
Pharmacy: [facility]
Post Operative Discharge Plan: Pending OT evaluation, possible home care.
[2025-03-26 11:03] LABS: Hematocrit 44.0 % (37.0-47.0); Hemoglobin 14.2 g/dL (12.0-16.0); Mean Corp Hgb Conc. 32.3 g/dL (33.0-37.0); Mean Corpuscular Volume 87.3 fL (81.0-99.0); Platelet Count 284 10^3/uL (130-400); Red Cell Dist. Width 13.2 % (11.5-14.5)
[2025-03-26 12:08] LABS: ALT (SGPT) 20 U/L (0-35); AST (SGOT) 22 U/L (14-36); Albumin 4.4 g/dl (3.5-5.0); Alkaline Phosphatase 102 U/L (38-126); Blood Urea Nitrogen 28 mg/dl (7-17); Calcium 10.1 mg/dl (8.4-10.2); Carbon Dioxide 29 mmol/L (22-30); Chloride 103 mmol/L (98-107); Glucose 116 mg/dl (70-99); Potassium 4.8 mmol/L (3.5-5.1); Sodium 138 mmol/L (135-145); Total Protein 6.8 g/dl (6.3-8.2); eGFR > 60.00
[2025-03-26 12:49] LABS: Glycohemoglobin (HgbA1c) 5.7 % (4.0-5.6)
[2025-03-26 14:06] VITALS: BMI 30.5
[2025-03-29 16:30] VITALS: BMI 30.5
[2025-04-06] VITALS (15 sets, daily range): BP systolic 105–149; BP diastolic 49–73; PULSE 83; O2SAT 98; BMI 30.5
[2025-04-06] MEDS: NORMOSOL-R/PLASMALYTE-A 1000 IV ×2 (10:03→16:46)
[2025-04-06] MEDS: TYLENOL 1000 MG PO (10:18)
[2025-04-06] MEDS: CELEBREX 200 MG PO (10:19)
[2025-04-06] MEDS: VANCOCIN 200 IV ×2 (10:27→22:12)
--- NOTE | 2025-04-06 10:27 | W.PN.UPDATE ---
Update Note
Progress Note Update
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
- s/p b/l TKA, 2013, by Dr. Arian Jones and L SHERRY, 07/2023, by Dr. Rubin Horta
DVT prophylaxis - Arixtra 2.5 mg SC daily per Hematology, bilateral venous compression devices
- Arixtra will ideally begin 12 hours post-surgery
HTN - diet controlled - monitor BP
DVT, 2015, provoked, after bilateral total knee arthroplasty
Small right lower lobe pulmonary embolism, 08/2023, provoked after left total hip arthroplasty
- DVT prophylaxis as stated above
- Venous foot pumps to be worn AT ALL TIMES when immobile during admission
- Early mobility as tolerated
- Pt has purchased plasma flow devices for outpatient use
Iron deficiency anemia - pre-op hgb notably WNL - non-invasive hgb in AM
HLD
CAD, non-obstructive per cardiac cath
Mild valvular disease
Hiatal hernia
History of H pylori
Colon polyps
Diverticulosis
Vertigo
Cervical stenosis
Stress incontinence
Deviated septum
Depression
Osteopenia
Insomnia
Remote shingles
Prediabetes, A1c 5.7
Obesity, BMI 30.5
--- NOTE | 2025-04-06 10:33 | PTCARENOTE ---
Patient ordered Vanco in the MAR by Candie Cardenas but pharmacy did not send a clarification to d/c Ancef. Problem ID filled out.
[2025-04-06] MEDS: ZOFRAN 4 MG IV (12:52)
[2025-04-06] MEDS: COMPAZINE 5 MG IV (13:07)
[2025-04-06] MEDS: VITAMIN D3 (cholecalciferol) 25 MCG PO (16:45)
[2025-04-06] MEDS: TYLENOL 650 MG PO ×2 (16:45→20:04)
[2025-04-06] MEDS: LIPITOR 20 MG PO (18:07)
[2025-04-06] MEDS: ARIXTRA 2.5 MG SC (20:02)
[2025-04-06] MEDS: BACTROBAN 2% OINTMENT 1 APPLIC NASAL (20:03)
[2025-04-06] MEDS: DECADRON 4 MG PO (20:03)
[2025-04-06] MEDS: COLACE 100 MG PO (20:03)
[2025-04-06] MEDS: SENOKOT 17.2 MG PO (20:04)
[2025-04-06] MEDS: NEURONTIN 300 MG PO (22:12)
[2025-04-06] MEDS: PEPCID 20 MG PO (22:12)
[2025-04-06] MEDS: ZOLOFT 75 MG PO (22:13)
[2025-04-07] MEDS: TYLENOL 650 MG PO ×3 (00:22→11:42)
--- NOTE | 2025-04-07 02:39 | DOWNTIME ---
There was a Resultly Client Change Management Analyst Downtime on 04/07/2025 from 0100 to 04/07/2025 at 0215. Downtime documentation of patient's care, including medication administrations, has been reconciled in the electronic record per guidelines. Refer to the
patient's paper chart under the miscellaneous tab to see printed paper medication records and downtime forms.
[2025-04-07 03:20] VITALS: BP 109/51
[2025-04-07 07:35] VITALS: BP 103/42
[2025-04-07] MEDS: COLACE 100 MG PO (08:02)
[2025-04-07] MEDS: VITAMIN D3 (cholecalciferol) 25 MCG PO (08:03)
[2025-04-07] MEDS: DECADRON 4 MG PO (08:03)
[2025-04-07] MEDS: SENOKOT 17.2 MG PO (08:03)
[2025-04-07] MEDS: BACTROBAN 2% OINTMENT 1 APPLIC NASAL (08:03)
--- NOTE | 2025-04-07 08:57 | W.PN.ORTHO ---
Today's Communication / Plan
-
Await OT recs.
D/c later today if remaining clinically stable.
Assessment
.
Distal Motor Intact: Yes
Dressing:
Clean, dry and intact.
Assessment:
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
- s/p b/l TKA, 2013, by Dr. Arian Jones and L SHERRY, 07/2023, by Dr. Rubin Horta
DVT prophylaxis - Arixtra 2.5 mg SC daily per Hematology, bilateral venous compression devices
- Arixtra started 20:00 POD 0. Tolerating well w/ no incisional bleeding noted
HTN - diet controlled - BPs stable overall
DVT, 2015, provoked, after bilateral total knee arthroplasty
Small right lower lobe pulmonary embolism, 08/2023, provoked after left total hip arthroplasty
- DVT prophylaxis as stated above
- Venous foot pumps to be worn AT ALL TIMES when immobile during admission
- Early mobility as tolerated
- Pt has purchased plasma flow devices for outpatient use
Iron deficiency anemia - pre-op hgb notably WNL - non-invasive hgb 11.9 POD 1
HLD
CAD, non-obstructive per cardiac cath
Mild valvular disease
Hiatal hernia
History of H pylori
Colon polyps
Diverticulosis
Vertigo
Cervical stenosis
Stress incontinence
Deviated septum
Depression
Osteopenia
Insomnia
Remote shingles
Prediabetes, A1c 5.7
Obesity, BMI 30.5
Plan
.
Surgery / Date: R Reverse TSA w/ Dr Linton 04/06/25
DVT Prophylaxis: Other (Arixtra )
Activity:
Out of bed.
PT/OT
Discharge Plan: Home (w/ hired private caregiver)
Subjective
.
.:
Patient resting comfortably in her chair.
R shoulder pain minimal w/ nerve block, pain meds.
Denies any new significant complaints.
Eager for potential d/c today.
Vital Signs and Labs
.
Vital Signs and Labs:
Lab Results
03/26/25 10:41
03/26/25 10:41
Temp Pulse Resp BP Pulse Ox
98.0 F 61 16 103/42 98
04/07/25 07:35 04/07/25 07:35 04/07/25 07:35 04/07/25 07:35 04/07/25 07:35
Non-invasive Hgb result: 11.9
Physical Exam
-
HEENT: No pallor, cyanosis, or jaundice. Throat clear.
NECK: Supple. No JVD.
RESPIRATORY: Lungs clear to auscultation.
CVS: S1, S2 normal. RRR.�
ABDOMEN: Soft, non-tender. No distension. Obese.
EXTREMITIES: + RUE sling. Good software trainer, radial pulses b/l. Able to wiggle fingers b/l. Strength equal, no calf pain with palpation/dorsiflexion. Calves soft.
CUSTOM DRESSMAKER: AOx3. No focal deficits. software recruiter grossly intact
--- NOTE | 2025-04-07 09:09 | W.DS.TRANS ---
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
-
Discharge Instructions:
Sleep Apnea Risk Low
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
Diet Regular
Additional Diets Adequate hydration, minimize opioids, and wear
TEDs stockings to prevent low blood pressure/
dizziness.
Activity As tolerated, Non-weightbearing right upper
extremity.
Driving Restrictions Not until seen by your Dr
Bathing Restrictions OK to Shower
Wound Care Leave dressing on until seen by surgeon's office
for follow-up.
Instructions:
Stand-Alone Forms: Total Shoulder Replacement D/C
Changes to Home Medications: Yes
Discharge Medications:
DC Medications w/original date entered in [employer]
atorvastatin 20 mg tablet 20 mg PO QPM High Cholesterol 01/22/22
sertraline 50 mg tablet 75 mg PO HS Mental Health/Anxiety 01/22/22
cholecalciferol (vitamin D3) 25 mcg (1,000 unit) tablet (Vitamin D3) 25 mcg PO DAILY Supplement 08/17/23
zolpidem 10 mg tablet 10 mg PO HSPRN PRN insomnia 08/17/23
aspirin 81 mg capsule 81 mg PO DAILY 03/25/25
calcium carbonate (Calcium 600) 1,200 mg PO DAILY 03/25/25
clindamycin HCl 300 mg capsule 600 mg PO PRN PRN dental procedure 03/25/25
mupirocin 2 % topical ointment 1 applic intranasal BID #1 tube 03/26/25
dexamethasone 4 mg tablet 4 mg PO BID Anti-inflammatory #7 tabs 03/31/25
famotidine 20 mg tablet (Pepcid) 20 mg PO HS #30 tabs 03/31/25
gabapentin 300 mg capsule 300 mg PO HS neuropathic pain/sleep #10 caps 03/31/25
ondansetron HCl 4 mg tablet 4 mg PO Q6H PRN nausea and vomiting #30 tabs 03/31/25
oxycodone 5 mg tablet 5 - 10 mg (1 - 2 x 5 mg) PO Q6H PRN moderate-severe pain #30 tabs 03/31/25
acetaminophen 500 mg tablet 1,000 mg (2 x 500 mg) PO Q6H pain #60 tabs 04/07/25
docusate sodium 100 mg capsule 100 mg PO BID #30 caps 04/07/25
fondaparinux 2.5 mg/0.5 mL subcutaneous solution syringe 2.5 mg (0.5 mL) SC DAILY@1999 #5 mL 04/07/25
magnesium hydroxide 400 mg/5 mL oral suspension (Milk of Magnesia) 30 ml PO HS PRN constipation #3,780 mL 04/07/25
sennosides 8.6 mg tablet (Sabine-chichi) 17.2 mg (2 x 8.6 mg) PO BID #30 tabs 04/07/25
Home Medication Changes
dexamethasone 4 mg tablet 4 mg PO BID Anti-inflammatory #7 tabs 03/31/25
famotidine 20 mg tablet (Pepcid) 20 mg PO HS #30 tabs 03/31/25
gabapentin 300 mg capsule 300 mg PO HS neuropathic pain/sleep #10 caps 03/31/25
ondansetron HCl 4 mg tablet 4 mg PO Q6H PRN nausea and vomiting #30 tabs 03/31/25
oxycodone 5 mg tablet 5 - 10 mg (1 - 2 x 5 mg) PO Q6H PRN moderate-severe pain #30 tabs 03/31/25
acetaminophen 500 mg tablet 1,000 mg (2 x 500 mg) PO Q6H pain #60 tabs 04/07/25
docusate sodium 100 mg capsule 100 mg PO BID #30 caps 04/07/25
fondaparinux 2.5 mg/0.5 mL subcutaneous solution syringe 2.5 mg (0.5 mL) SC DAILY@1999 #5 mL 04/07/25
magnesium hydroxide 400 mg/5 mL oral suspension (Milk of Magnesia) 30 ml PO HS PRN constipation #3,780 mL 04/07/25
sennosides 8.6 mg tablet (Sabine-chichi) 17.2 mg (2 x 8.6 mg) PO BID #30 tabs 04/07/25
Pending Results: No
[2025-04-07 09:49] VITALS: BP 113/52; PULSE 60; O2SAT 96
[2025-04-07 11:36] VITALS: BP 118/54
[2025-04-07] MEDS: TYLENOL PO (11:44)
== END 2025-04-07 12:14 | disposition home or self-care (01) | DRG 483 ==
LOC: 2 SOUTH 10:01
PROVIDERS: ADMITTING PHYSICIAN Specialist; FAMILY PHYSICIAN Internal Medicine; REFERRING PHYSICIAN Internal Medicine
PROC: 0RRJ00Z Replacement of Right Shoulder Joint with Reverse Ball and Socket Synthetic Substitute, Open Approach (ICD-10-PCS; 2025-04-06)
DX: M19.011 Primary osteoarthritis, right shoulder (principal); I10 Essential (primary) hypertension; E78.5 Hyperlipidemia, unspecified; I25.10 Atherosclerotic heart disease of native coronary artery without angina pectoris; K44.9 Diaphragmatic hernia without obstruction or gangrene; M48.02 Spinal stenosis, cervical region; N39.3 Stress incontinence (female) (male); D50.9 Iron deficiency anemia, unspecified; F32.A Depression, unspecified; M85.80 Other specified disorders of bone density and structure, unspecified site; G47.00 Insomnia, unspecified; R73.03 Prediabetes; E66.9 Obesity, unspecified; Z60.2 Problems related to living alone; Z96.642 Presence of left artificial hip joint; Z96.653 Presence of artificial knee joint, bilateral; Z68.30 Body mass index [BMI] 30.0-30.9, adult; Z86.0100 Personal history of colon polyps, unspecified; Z87.19 Personal history of other diseases of the digestive system; Z86.718 Personal history of other venous thrombosis and embolism; Z86.711 Personal history of pulmonary embolism; Z86.19 Personal history of other infectious and parasitic diseases; Z79.82 Long term (current) use of aspirin; Z90.710 Acquired absence of both cervix and uterus; Z98.41 Cataract extraction status, right eye
CPT/HCPCS: 36415; 73020; 80053; 83036; 85027; 87070; 97167; 97530; 97535; C1713; C1776

== ENCOUNTER → 2025-05-20 07:48 | Outpatient (REF) | payer MEDICARE, SELFPAY ==
[2025-05-20 10:19] LABS: Glycohemoglobin (HgbA1c) 5.9 % (4.0-5.9)
[2025-05-20 10:35] LABS: ALT (SGPT) 24 U/L (0-35); AST (SGOT) 25 U/L (14-36); Albumin 4.2 g/dl (3.5-5.0); Alkaline Phosphatase 105 U/L (38-126); Blood Urea Nitrogen 20 mg/dl (7-17); Calcium 9.6 mg/dl (8.4-10.2); Carbon Dioxide 31 mmol/L (22-30); Chloride 102 mmol/L (98-107); Glucose 103 mg/dl (70-99); HDL Cholesterol 72 mg/dl; LDL Cholesterol, Calculated 100 mg/dl; Potassium 4.7 mmol/L (3.5-5.1); Sodium 137 mmol/L (135-145); Total Protein 6.7 g/dl (6.3-8.2); Very Low Density Lipoprotein 15 mg/dl (0-30); eGFR > 60.00
== END ==
LOC: REG 07:48
PROVIDERS: ATTENDING PHYSICIAN Internal Medicine
DX: I10 Essential (primary) hypertension (principal); R73.03 Prediabetes; E78.00 Pure hypercholesterolemia, unspecified
CPT/HCPCS: 36415; 80053; 80061; 83036